=== PATIENT | male | born 1940 | race Caucasian/White ===

== ENCOUNTER → 2016-10-04 | Day surgery (SDC) | payer MEDICARE, MEDICAID ==
[2016-10-04] VITALS (12 sets, daily range): BP systolic 150–180; BP diastolic 6–89
[~2016-10-04] VITALS: Ht 170.2 cm; Wt 80.3 kg
[~2016-10-04] MED LIST: ASPIRIN81 MG ORAL; ATORVASTATIN CA40 MG ORAL; CARVEDILOL12.5 MG ORAL; DiphenhydrAMINE 50mg/ml Inj IVP PRN; EFFIENT10 MG PO; FLUDROCORTISON0.1 MG PO; HYDRALAZINE HCL50 MG ORAL; Iothalamate Meglumine 60% 30ML INJ ONE; LASIX40 MG ORAL; LR 1000ml 1,000 ML IVLG SCH; LR 1000ml ONE; METOPROLOL SUCC50 MG ORAL; Midazolam 2mg/2ml Inj ONE; NAMENDA10 MG ORAL; NS Irrig 1000ml ONE; NS Irrig 4000ml IRRIG ONE; Sterile Water For Irrig 2000ml IRRIG ONE; Sterile Water Irrig 1000ml IRRIG ONE; TAMSULOSIN HCL0.4 MG ORAL; VITAMIN D1000 UNI1 ORAL; ceFAZolin 1gm/50ml Premix 50 ML IV ONE; fentaNYL 100 mcg/2 mL IV ONE; fentaNYL 100 mcg/2 mL IV PRN
--- NOTE | 2016-10-04 07:56 | Pre-Procedure Note/Attestation ---
Pre-Procedure Note/Attestation Complete Prior to Procedure Planned Procedure: right Procedure Narrative: Ureteroscopy Laser Stone fragmentation stent placement left Attestation I attest that I discussed the nature of the procedure; its benefits; risks and complications; and alternatives (and the risks and benefits of such alternatives ), prior to the procedure, with the patient (or the patient's legal small business representative). I attest that, if there was a reasonable possibility of needing a blood transfusion, the patient (or the patient's legal small business representative) was given the [facility] standardized written summary, pursuant to the [place] Blood Safety Act ([place] Health and Safety Code # 1645, as amended). I attest that I re-evaluated the patient just prior to the surgery and that there has been no change in the patient's H&P, except as documented below: Macario Reyes MD Oct 04, 2016 07:56
--- NOTE | 2016-10-04 11:12 | Anethesia Preoperative Eval ---
Anesthesia Pre-op PMH/ROS General Date of Evaluation: Oct 04, 2016 Time of Evaluation: 10:40 Anesthesiologist: Faith ASA Score: ASA 3 Mallampati Score Class I : Soft palate, uvula, fauces, pillars visible Class II: Soft palate, uvula, fauces visible Class III: Soft palate, base of uvula visible Class IV: Only hard plate visible Mallampati Classification: Class III Surgeon: Amy Diagnosis: Kidney stones Surgical Procedure: Cysto retrograde pyelogram Anesthesia History: none Family History: no anesthesia problems Allergies: Coded Allergies: ACETAMINOPHEN (Verified Adverse Reaction, Severe, Extreme confusion, delerium, 01/19/16) HYDROCODONE (Verified Adverse Reaction, Severe, Extreme confusion, delerium, 01/19/16) Medications: see eMAR Past Medical History Cardiovascular: Reports: CAD, HTN, arrhythmia Pulmonary: Reports: CARLOS, Denies: COPD, asthma, other Gastrointestinal/Genitourinary: Reports: GERD, other - kidney stones, Denies: CRI, ESRD Neurologic/Psychiatric: 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 Exam Physician Exam Last Vital Signs Date Time Temp Pulse Resp B/P Pulse Ox O2 Delivery O2 Flow Rate FiO2 10/04/16 10:25 97.5 68 18 180/83 95 Room Air Constitutional: NAD Neurologic: CN 2-12 intact Cardiovascular: RRR, no M/R/G Respiratory: CTA Gastrointestinal: S/NT/ND Airway Exam Mallampati Score: Class III MO: limited Neck: stiff ROM: limited Teeth: missing Dentures: lower, upper Anesthesia Pre-op A/P Labs see chart Studies Pre-op Studies: EKG - ME Risk Assessment & Plan Assessment: ASA 3 Plan: GA with LMA Status Change Before Surgery: No Pre-Antibiotics Drug: Ancef 1 gr. Given Within 1 Hr of Incision: Yes Time Given: 10:56 CHI WELLS M.D. Oct 04, 2016 11:12
--- NOTE | 2016-10-04 12:53 | Immediate Post-Op Evaluation ---
Immediate Post-Op Evalulation Immediate Post-Op Evalulation Procedure: Cysto retrograde pyelogram stent placement Date of Evaluation: Oct 04, 2016 Time of Evaluation: 11:42 IV Fluids: 800 Blood Products: none Estimated Blood Loss: min Urinary Output: n/a Blood Pressure Systolic: 148 Blood Pressure Diastolic: 76 Pulse Rate: 62 Respiratory Rate: 20 O2 Sat by Pulse Oximetry: 98 Temperature (Fahrenheit): 98.4 Pain Score (1-10): 2 Nausea: No Vomiting: No Complications none Patient Status: reacts, patent, none Hydration Status: adequate CHI WELLS M.D. Oct 04, 2016 12:53
--- NOTE | 2016-10-04 14:10 | 48 Hour Post Anesthesia Eval ---
Post Anesthesia Evaluation Procedure: Cysto retrograde pyelogram stent placement Date of Evaluation: Oct 04, 2016 Time of Evaluation: 14:08 Blood Pressure Systolic: 156 0: 78 Pulse Rate: 62 Respiratory Rate: 20 Temperature (Fahrenheit): 97.6 O2 Sat by Pulse Oximetry: 99 Airway: patent Nausea: No Vomiting: No Pain Intensity: 2 Hydration Status: adequate Cardiopulmonary Status: stable Mental Status/LOC: patient returned to baseline Follow-up Care/Observations: n/a Post-Anesthesia Complications: none Follow-up care needed: ready to discharge CHI WELLS M.D. Oct 04, 2016 14:10
--- NOTE | 2016-10-05 13:25 | Diagnostic Imaging Report ---
Indication: Right flank pain Technique: Digital intraoperative imaging Comparison: None Findings: The opacified right ureter demonstrates mild right hydronephrosis. Subsequent images document placement of a right nephroureteral stent Impression: Intraoperative imaging, as described
--- NOTE | 2016-10-11 11:08 | Operative Note - Dictated ---
DATE OF OPERATION: 10/04/2016 PREOPERATIVE DIAGNOSES: 1. Right ureteral stone. 2. Right ureteral obstruction. POSTOPERATIVE DIAGNOSES: 1. Right ureteral stone. 2. Right ureteral obstruction. OPERATIONS PERFORMED: 1. Cystoscopy. 2. Retrograde pyelogram. 3. Flexible ureteroscopy. 4. Placement of double J stent. SURGEON: Macario Reyes M.D. ANESTHESIA: General. FINDINGS: The obstructed stone removed from the right ureter. INDICATIONS FOR SURGERY: The patient had right renal colic and CT urogram showed a stone in the mid right ureter with hydronephrosis. Treatment options were explained to him in great length including all potential complications and he signed the consent. DESCRIPTION OF PROCEDURE: The patient was brought to the operating room, placed in lithotomy position, prepped and draped in standard fashion. Under general anesthesia, a cystoscope was introduced. The bladder was normal. Right ureter was cannulated and retrograde pyelogram showed dilated upper ureter with a stone lodged in the mid right ureter. Flexible ureteroscopy was performed, which showed some due to the . Decision was made to proceed with stent placement and a through the stone, and was placed in the left . The patient tolerated the procedure well. Bladder was decompressed. . Sponge count and instrument count was correct. Mejia catheter was placed. The patient was transferred to recovery room in stable condition. Macario Reyes M.D. DR: Gretel JOB#: [id number] CC: JOJO
== END | disposition home or self-care (01) ==
LOC: SUR 08:40
DX: N13.2 Hydronephrosis with renal and ureteral calculous obstruction (principal); I25.10 Atherosclerotic heart disease of native coronary artery without angina pectoris; Z95.1 Presence of aortocoronary bypass graft; Z95.5 Presence of coronary angioplasty implant and graft; I73.9 Peripheral vascular disease, unspecified; I12.9 Hypertensive chronic kidney disease with stage 1 through stage 4 chronic kidney disease, or unspecified chronic kidney disease; N18.9 Chronic kidney disease, unspecified; G47.33 Obstructive sleep apnea (adult) (pediatric); K21.9 Gastro-esophageal reflux disease without esophagitis; I49.9 Cardiac arrhythmia, unspecified; I69.954 Hemiplegia and hemiparesis following unspecified cerebrovascular disease affecting left non-dominant side; D64.9 Anemia, unspecified; M19.90 Unspecified osteoarthritis, unspecified site; Z95.0 Presence of cardiac pacemaker; Z88.6 Allergy status to analgesic agent; Z88.5 Allergy status to narcotic agent
CPT/HCPCS: 52332; 52351; 74420; 76000; J0690; J1940; J2250; J3010; J7120; Q9961; 94003; 94150

== ENCOUNTER → 2016-10-18 | Day surgery (SDC) | payer MEDICARE, MEDICAID ==
[2016-10-18] VITALS (11 sets, daily range): BP systolic 81–195; BP diastolic 41–92
[~2016-10-18] VITALS: Ht 172.7 cm; Wt 79.8 kg
[~2016-10-18] MED LIST changes: -DiphenhydrAMINE 50mg/ml Inj IVP PRN; -LR 1000ml 1,000 ML IVLG SCH; -Midazolam 2mg/2ml Inj ONE; -NS Irrig 1000ml ONE; +NS Irrig 2000ml IRRIG ONE; -NS Irrig 4000ml IRRIG ONE; +Propofol 10mg/ml 20ml IV ONE; -Sterile Water For Irrig 2000ml IRRIG ONE; -ceFAZolin 1gm/50ml Premix 50 ML IV ONE; +ceFAZolin sod 1 GM in NS 55 ML IVPB ONE; -fentaNYL 100 mcg/2 mL IV ONE; -fentaNYL 100 mcg/2 mL IV PRN
--- NOTE | 2016-10-18 07:59 | Pre-Procedure Note/Attestation ---
Pre-Procedure Note/Attestation Complete Prior to Procedure Planned Procedure: right Procedure Narrative: RIRS right with laser stone manipulation stent placement Indications for Procedure Pre-Operative Diagnosis: ureteral stone Attestation I attest that I discussed the nature of the procedure; its benefits; risks and complications; and alternatives (and the risks and benefits of such alternatives ), prior to the procedure, with the patient (or the patient's legal auto claim representative). I attest that, if there was a reasonable possibility of needing a blood transfusion, the patient (or the patient's legal auto claim representative) was given the [facility] standardized written summary, pursuant to the [place] Blood Safety Act ([place] Health and Safety Code # 1645, as amended). I attest that I re-evaluated the patient just prior to the surgery and that there has been no change in the patient's H&P, except as documented below: Macario Reyes MD Oct 18, 2016 07:59
--- NOTE | 2016-10-18 09:49 | Anethesia Preoperative Eval ---
Anesthesia Pre-op PMH/ROS General Date of Evaluation: Oct 18, 2016 Time of Evaluation: 09:00 Anesthesiologist: toño ASA Score: ASA 3 Mallampati Score Class I : Soft palate, uvula, fauces, pillars visible Class II: Soft palate, uvula, fauces visible Class III: Soft palate, base of uvula visible Class IV: Only hard plate visible Mallampati Classification: Class I Surgeon: tito Diagnosis: ureral stone Surgical Procedure: RIRS right with laser stone manipulation stent placement Allergies: Coded Allergies: ACETAMINOPHEN (Verified Adverse Reaction, Severe, Extreme confusion, delerium, 01/19/16) HYDROCODONE (Verified Adverse Reaction, Severe, Extreme confusion, delerium, 01/19/16) Past Medical History Cardiovascular: Reports: HTN Anesthesia Pre-op Phys. Exam Physician Exam Last Vital Signs Date Time Temp Pulse Resp B/P Pulse Ox O2 Delivery O2 Flow Rate FiO2 10/18/16 07:41 97.0 65 18 164/81 95 Room Air Dyan Rossi MD Oct 18, 2016 09:49
--- NOTE | 2016-10-18 10:15 | Brief Operative Note ---
Immediate Post Operative Note Operative Note Pre-op Diagnosis: ureteral stone Procedure: Right ureteroscopy stone removal stent removal stent placement Post-op Diagnosis: same Post-op Diagnosis: same as pre-op Surgeon: Conrado Reyes Anesthesia: general Specimen: yes Complications: none Condition: stable Estimated Blood Loss: minimal Implant(s) used?: No Macario Reyes MD Oct 18, 2016 10:15
--- NOTE | 2016-10-18 10:21 | Immediate Post-Op Evaluation ---
Immediate Post-Op Evalulation Immediate Post-Op Evalulation Procedure: uretral stone removal and stent Date of Evaluation: Oct 18, 2016 Time of Evaluation: 10:30 Nausea: No Vomiting: No Hydration Status: adequate Given Within 1 Hr of Incision: Yes Dyan Rossi MD Oct 18, 2016 10:21
--- NOTE | 2016-10-18 11:06 | 48 Hour Post Anesthesia Eval ---
Post Anesthesia Evaluation Procedure: uretral stone removal and stent Date of Evaluation: Oct 18, 2016 Time of Evaluation: 11:00 Nausea: No Vomiting: No Hydration Status: adequate Mental Status/LOC: patient returned to baseline Dyan Rossi MD Oct 18, 2016 11:06
--- NOTE | 2016-10-18 12:18 | Diagnostic Imaging Report ---
Indication: Followup cystoscopy for right ureteral oculus that was not removed previously a stent was placed previously, as well as right calyceal stone removal and stent placement; intraoperative imaging Technique: Digital intraoperative images Comparison: 10/04/2016 Findings: Previously demonstrated proximal ureteral calculus has apparently migrated to the lower pole calyx. Intraoperative images demonstrate lithotripsy device in a lower pole calyx. Subsequent images document placement of a right nephroureteral stent Impression: Intraoperative imaging, as described
--- NOTE | 2016-10-23 08:48 | Operative Note - Dictated ---
DATE OF OPERATION: 10/18/2016 PREOPERATIVE DIAGNOSES: 1. Replacement of double J-stent. 2. Right UPJ stone. 3. Hydronephrosis. 4. Urinary tract infection. OPERATIONS PERFORMED: 1. Cystoscopy. 2. Removal of the old stent. 3. Placement of new double J stent after the semi rigid ureteroscopy and removal of stone from the upper right ureter. 4. Retrograde pyelogram. POSTOPERATIVE DIAGNOSES: 1. Cystoscopy. 2. Removal of the old stent. 3. Placement of new double J stent after the semi rigid ureteroscopy and removal of stone from the upper right ureter. 4. Retrograde pyelogram. OPERATED BY: Macario Reyes M.D. ANESTHESIA: General. FINDINGS: As above. INDICATIONS FOR SURGERY: The patient had acute renal colic with a stone in the right ureter. He had emergency stenting. All potential complications were explained and he signed the consent. DESCRIPTION OF PROCEDURE: The patient was brought to the operating room, placed in lithotomy position, prepped and draped in standard fashion. Under general anesthesia, a cystoscope was introduced into the bladder. Old stent was removed and new guidewire was placed. Semi rigid ureteroscope was introduced and stone was found in the upper ureter, grasped with Nitinol basket and removed for pathologic examination. . New stent was placed, 13/01, and left indwelling with a Mejia catheter. Sponge count and instrument count was correct. Macario Reyes M.D. DR: LE JOB#: [id number] CC:
[2016-10-27 09:24] LABS: CA OXALATE MONODYRD 95 % (.); STONE COLOR Brown (.); STONE SIZE 6x4x4 mm (.)
== END | disposition home or self-care (01) ==
LOC: SUR 07:13
DX: N13.2 Hydronephrosis with renal and ureteral calculous obstruction (principal); N39.0 Urinary tract infection, site not specified; I25.10 Atherosclerotic heart disease of native coronary artery without angina pectoris; I12.9 Hypertensive chronic kidney disease with stage 1 through stage 4 chronic kidney disease, or unspecified chronic kidney disease; N18.9 Chronic kidney disease, unspecified; I73.9 Peripheral vascular disease, unspecified; Z86.73 Personal history of transient ischemic attack (TIA), and cerebral infarction without residual deficits
CPT/HCPCS: 52332; 52352; 74420; 76000; J0690; J1940; J2704; J7120; Q9961; 82360; 94003; 94150

== ENCOUNTER 2017-09-25 01:44 | Inpatient (IN) | payer MEDICARE, MEDICAID ==
[~2017-09-25] VITALS: Ht 170.2 cm; Wt 60.3 kg
[2017-09-25] VITALS (8 sets, daily range): BP systolic 144–186; BP diastolic 68–99
[~2017-09-25 01:44] MED LIST changes: -Iothalamate Meglumine 60% 30ML INJ ONE; -LR 1000ml ONE; -NS Irrig 2000ml IRRIG ONE; -Propofol 10mg/ml 20ml IV ONE; -Sterile Water Irrig 1000ml IRRIG ONE; -ceFAZolin sod 1 GM in NS 55 ML IVPB ONE
--- NOTE | 2017-09-25 02:03 | Emergency Room Report ---
History of Present Illness General Chief Complaint: Altered Level of Consciousness Source: Family Member Present Illness HPI Patient presents with complaints of change in mental status Daughter reports that the patient at approximately 6:00 in the eating appear to be more confused patient's symptoms continued to progress He has had a previous CVA about 2 years ago He did have loss of significant vision with that However the daughter states that this evening he is not able to see her And that usually he does have some visual site also has underlying dementia Patient himself is nonverbal with us however the daughter reports that he asked her who she was just before I came in the room No reports of vomiting No reports of diarrhea No reports of focal weakness Allergies: Coded Allergies: ACETAMINOPHEN (Verified Adverse Reaction, Severe, Extreme confusion, delerium, 01/19/16) HYDROCODONE (Verified Adverse Reaction, Severe, Extreme confusion, delerium, 01/19/16) Patient History Limited by: medical condition Past Medical History: see triage record Pertinent Family History: unable to obtain Reviewed Nursing Documentation: PMH: Agreed, PSxH: Agreed Nursing Documentation-PMH Hx Cardiac Problems: Yes - Poor bilateral lower extremity circulation ,high cholesterol Hx Hypertension: Yes - legally blind both eyes Hx Pacemaker: Yes Hx COPD: Yes Hx Diabetes: Yes - Pre diabetic Hx Cancer: No Hx Gastrointestinal Problems: Yes History Of Psychiatric Problem: Yes - DEMENTIA Hx Neurological Problems: Yes Hx Cerebrovascular Accident: Yes - during open heart surgery Hx Transient Ischemic Attacks: Yes - During cardiac surgery - 2011 Hx Dementia: Yes Hx Memory Loss: Yes Hx Weakness: Yes - Left hand Review of Systems All Other Systems: limited - Other than the ones mentioned in the history of present illness all others are reviewed however they do stay limited due to the patient's mental status Physical Exam Vital Signs Date Time Temp Pulse Resp B/P (MAP) Pulse Ox O2 Delivery O2 Flow Rate FiO2 09/25/17 01:43 97.8 72 18 186/87 98 Room Air 97.9 Sp02 EP Interpretation: reviewed, normal General Appearance: no apparent distress Head: normocephalic, atraumatic Eyes: bilateral eye PERRL, bilateral eye other - Patient was able to look at me when I walked in, however the daughter reports that his vision is significantly worse ENT: hearing grossly normal, normal pharynx, TMs + canals normal, uvula midline Neck: full range of motion, supple Respiratory: crackles - both lower lobes Cardiovascular #1: no edema, no gallop Gastrointestinal: non tender, soft Musculoskeletal: other - Patient does not follow commands, however move both upper extremity towards stimuli Neurologic: responsive, other - Patient is responsive to physical stimuli looks , towards the verbal commands Skin: no rash, warm/dry Lymphatic: no adenopathy Medical Decision Making Diagnostic Impression: Primary Impression: Encephalopathy Additional Impressions: Renal insufficiency Pneumonia ER Course Patient is a fairly complex patient with multiple differential to consideration including but not limited to intracranial ,cardiac cardiopulmonary and vascular emergencies Patient's CT head blood work initiated Also consideration for infectious pathology is made Patient blood work shows elevated BUN and creatinine Urine sample however is clear Patient does not meet thrombolytic criteria Last well-known was over 6 hours ago Patient has also had previous CVA and the main deficit at this time is decrease in vision Patient's x-ray shows possible increased markings right lower lobe was initiated on antibiotics Labs Test 09/25/17 02:00 09/25/17 02:05 White Blood Count 7.9 K/UL (4.8-10.8) Red Blood Count 3.88 M/UL (4.70-6.10) Hemoglobin 12.0 G/DL (14.2-18.0) Hematocrit 35.8 % (42.0-52.0) Mean Corpuscular Volume 92 FL (80-99) Mean Corpuscular Hemoglobin 30.9 PG (27.0-31.0) Mean Corpuscular Hemoglobin Concent 33.4 G/DL (32.0-36.0) Red Cell Distribution Width 13.4 % (11.6-14.8) Platelet Count 142 K/UL (150-450) Mean Platelet Volume 7.9 FL (6.5-10.1) Neutrophils (%) (Auto) 76.8 % (45.0-75.0) Lymphocytes (%) (Auto) 14.0 % (20.0-45.0) Monocytes (%) (Auto) 6.4 % (1.0-10.0) Eosinophils (%) (Auto) 2.3 % (0.0-3.0) Basophils (%) (Auto) 0.5 % (0.0-2.0) Sodium Level 139 MMOL/L (136-145) Potassium Level 4.3 MMOL/L (3.5-5.1) Chloride Level 106 MMOL/L (98-107) Carbon Dioxide Level 25 MMOL/L (21-32) Anion Gap 9 mmol/L (5-15) Blood Urea Nitrogen 40 mg/dL (7-18) Creatinine 2.3 MG/DL (0.55-1.30) Estimat Glomerular Filtration Rate mL/min (>60) Glucose Level 121 MG/DL (74-106) Lactic Acid Level 0.70 mmol/L (0.66-2.22) Calcium Level 8.6 MG/DL (8.5-10.1) Total Bilirubin 0.5 MG/DL (0.2-1.0) Aspartate Amino Transf (AST/SGOT) 11 U/L (15-37) Alanine Aminotransferase (ALT/SGPT) 16 U/L (12-78) Alkaline Phosphatase 87 U/L (46-116) Total Creatine Kinase 43 U/L (26-308) Creatine Kinase MB 1.1 NG/ML (0.0-3.6) Creatine Kinase MB Relative Index 2.5 Troponin I 0.043 ng/mL (0.000-0.056) Total Protein 6.5 G/DL (6.4-8.2) Albumin 3.3 G/DL (3.4-5.0) Globulin 3.2 g/dL Albumin/Globulin Ratio 1.0 (1.0-2.7) Lipase 130 U/L (73-393) Urine Color Pale yellow Urine Appearance Clear Urine pH 5 (4.5-8.0) Urine Specific [place] 1.015 (1.005-1.035) Urine Protein Negative (NEGATIVE) Urine Glucose (UA) Negative (NEGATIVE) Urine Ketones Negative (NEGATIVE) Urine Occult Blood Negative (NEGATIVE) Urine Nitrite Negative (NEGATIVE) Urine Bilirubin Negative (NEGATIVE) Urine Urobilinogen Normal MG/DL (0.0-1.0) Urine Leukocyte Esterase Negative (NEGATIVE) EKG Diagnostic Results Rate: normal Rhythm: NSR ST Segments: other - prolonged qrs, LVH Rhythm Strip Diag. Results EP Interpretation: yes Rate: 67 Rhythm: NSR, no PVC's, no ectopy Chest X-Ray Diagnostic Results Chest X-Ray Diagnostic Results : Chest X-Ray Ordered: Yes # of Views/Limited/Complete: 1 View Indication: Chest Pain EP Interpretation: Yes Interpretation: no effusion, no pneumothorax, other - Cardiomegaly, increased markings right lower lobe, appearance of possible mild congestion Impression: Other - Right lower lobe increased markings Electronically Signed by: Conrado Bailey, DO CT/MRI/US Diagnostic Results CT/MRI/US Diagnostic Results : Impression CT head: No hemorrhage moderate age related volume loss over the bilateral hypodensities in the bilateral occipital temporal and parietal lobes superimposed acute infarct in these regions cannot be excluded Last Vital Signs Date Time Temp Pulse Resp B/P (MAP) Pulse Ox O2 Delivery O2 Flow Rate FiO2 09/25/17 01:43 97.8 72 18 186/87 98 Room Air 97.9 Status: improved Disposition: ADMITTED INPATIENT Condition: Serious CONRADO BAILEY D.O. Sep 25, 2017 02:03
[2017-09-25 02:18] LABS: BASOPHILS % (AUTO) 0.5 % (0.0-2.0); EOSINOPHILS % (AUTO) 2.3 % (0.0-3.0); HEMATOCRIT 35.8 % (42.0-52.0); MEAN CORPUSCULAR VOLUME 92 FL (80-99); MONOCYTES % (AUTO) 6.4 % (1.0-10.0); NEUTROPHILS % (AUTO) 76.8 % (45.0-75.0); PLATELET COUNT 142 K/UL (150-450); RED BLOOD COUNT 3.88 M/UL (4.70-6.10); RED CELL DISTRIBUTION WIDTH 13.4 % (11.6-14.8); WHITE BLOOD COUNT 7.9 K/UL (4.8-10.8)
[2017-09-25 02:18] LABS: APPEARANCE,URINE CLEAR; BILIRUBIN, URINE NEGATIVE (NEGATIVE); COLOR,URINE PALE YELLOW; GLUCOSE, URINE (UA) NEGATIVE (NEGATIVE); KETONES,URINE NEGATIVE (NEGATIVE); LEUKOCYTE ESTERASE ,URINE NEGATIVE (NEGATIVE); NITRITE,URINE NEGATIVE (NEGATIVE); PH,URINE 5 (4.5-8.0); PROTEIN,URINE NEGATIVE (NEGATIVE); UROBILINOGEN,URINE NORMAL MG/DL (0.0-1.0)
[2017-09-25 02:32] LABS: ANION GAP 9 mmol/L (5-15); BLOOD UREA NITROGEN 40 mg/dL (7-18); CALCIUM 8.6 MG/DL (8.5-10.1); CARBON DIOXIDE 25 MMOL/L (21-32); CHLORIDE 106 MMOL/L (98-107); CREATININE 2.3 MG/DL (0.55-1.30); POTASSIUM 4.3 MMOL/L (3.5-5.1); SODIUM 139 MMOL/L (136-145)
[2017-09-25 02:51] LABS: ALANINE AMINOTRANSFERASE 16 U/L (12-78); ALBUMIN 3.3 G/DL (3.4-5.0); ALKALINE PHOSPHATASE 87 U/L (46-116); ASPARTATE AMINO TRANSFERASE 11 U/L (15-37); BILIRUBIN,TOTAL 0.5 MG/DL (0.2-1.0); CKMB 1.1 NG/ML (0.0-3.6); CREATINE KINASE 43 U/L (26-308)
[2017-09-25] MEDS ORDERED: Albuterol/Ipratropium 3ml neb HHN PRN (05:30)
[2017-09-25] MEDS ORDERED: Morphine Sulfate 2mg/ml Inj IVP PRN (05:30)
[2017-09-25] MEDS ORDERED: Miralax 17gm pkt ORAL PRN (05:30)
[2017-09-25] MEDS ORDERED: LORazepam Inj 2mg/ml 1ml IV PRN (05:30)
[2017-09-25] MEDS ORDERED: Nitroglycerin Subl 0.4mg tab SL PRN (05:30)
[2017-09-25] MEDS ORDERED: Mylanta II UD 30ml ORAL PRN (05:30)
[2017-09-25] MEDS: D5 1/2NS 1,000 ML IV SCH ×2 (06:22→23:05)
[2017-09-25] MEDS ORDERED: LASIX20 M1 ORAL (06:43)
[2017-09-25] MEDS: Heparin 5000 units/ml inj SUBQ SCH ×2 (09:00→20:17)
[2017-09-25] MEDS ORDERED: Carvedilol 12.5mg tab ORAL SCH (09:00)
--- NOTE | 2017-09-25 09:39 | Diagnostic Imaging Report ---
Indication: Altered mental status Technique: Contiguous 5 mm thick transaxial imaging of the head obtained in a Siemens Sensation [address] scanner. Soft tissue and bone windows generated. Automatic Exposure Control was utilized. Total Dose length Product (DLP): 1288.[address] Dose Index Volume (CTDIvol): 70.38 mGy Comparison: none Findings: There is abnormal low attenuation demonstrated within the occipital regions bilaterally. Consider subacute ischemia or hypertensive encephalopathy. Moderate atrophy of the brain noted. Periventricular low attenuation noted. Probable small lacunar infarct in the right basal ganglia region noted. There is no evidence of acute intracranial hemorrhage or mass effect. Bones are unremarkable. IMPRESSION: Abnormal bioccipital low attenuation. Consider subacute CVA versus posterior reversible encephalopathy syndrome (PRES). Other incidental findings as above The CT scanner at [facility] is accredited by the [employer] and the scans are performed using dose optimization techniques as appropriate to a performed exam including Automatic Exposure control.
--- NOTE | 2017-09-25 09:57 | Diagnostic Imaging Report ---
Indication: Chest pain Comparison: None A single view chest radiograph was obtained. Findings: No definite infiltrate or pulmonary vascular congestion identified. Azygous lobe noted. Pacemaker and sternotomy noted. The heart is enlarged. The aorta is mildly enlarged consistent with atherosclerotic vascular disease. The bones are osteopenic. Impression: No acute disease
--- NOTE | 2017-09-25 12:57 | History and Physical ---
History of Present Illness General Date patient seen: Sep 25, 2017 Reason for Hospitalization: Altered Level of Consciousness Present Illness HPI 76 year old male with hx of cardiomyopathy, ICD, CVA dementia, presented to ER by paramedics with complaints of change in mental status Reportedly pt appeared to be more confused patient's symptoms continued to progress yesterday. he was not able to see. Patient himself is nonverbal and ll information is obtained form the chart. Allergies: Coded Allergies: ACETAMINOPHEN (Verified Adverse Reaction, Severe, Extreme confusion, delerium, 01/19/16) HYDROCODONE (Verified Adverse Reaction, Severe, Extreme confusion, delerium, 01/19/16) Medication History Scheduled Aspirin* (Aspirin*), 81 MG ORAL DAILY, (Reported) Atorvastatin Calcium* (Atorvastatin Calcium*), 40 MG ORAL BEDTIME, (Reported) Carvedilol* (Carvedilol*), 12.5 MG ORAL DAILY, (Reported) Cholecalciferol (Vitamin D3)* (Vitamin D*), 2,000 UNIT ORAL DAILY, (Reported) Furosemide* (Lasix*), 20 MG ORAL DAILY, (Reported) Hydralazine Hcl* (Hydralazine Hcl*), 50 MG ORAL BID, (Reported) Memantine Hcl* (Namenda*), 10 MG ORAL TWICE A DAY, (Reported) Prasugrel Hcl (Effient), 10 MG PO BID, (Reported) Tamsulosin Hcl (Tamsulosin Hcl*), 0.4 MG ORAL BEDTIME, (Reported) Discontinued Medications Furosemide* (Lasix*), 40 MG ORAL DAILY, (Reported) Discontinued Reason: Medication dose changed Patient History Healthcare decision maker AILYN ARAIZA Resuscitation status Advanced Directive on File Past Medical/Surgical History Past Medical/Surgical History: (1) Dementia (2) CVA (cerebral vascular accident) (3) ICD (implantable cardioverter-defibrillator) in place (4) Cardiomyopathy Review of Systems All Other Systems: negative except mentioned in HPI Physical Exam General Appearance: WD/WN Lines, tubes and drains: peripheral HEENT: normocephalic, atraumatic Neck: non-tender, normal alignment Respiratory/Chest: chest wall non-tender, lungs clear Cardiovascular/Chest: normal peripheral pulses, normal rate Abdomen: normal bowel sounds, non tender Extremities: normal range of motion, non-tender Skin Exam: normal pigmentation Neurologic: siphoner II-XII grossly normal Last 24 Hour Vital Signs Date Time Temp Pulse Resp B/P (MAP) Pulse Ox O2 Delivery O2 Flow Rate FiO2 09/25/17 12:22 97.0 65 20 144/68 97 Room Air 97.0 09/25/17 10:00 71 16 Room Air 21 09/25/17 09:23 70 146/86 09/25/17 09:21 70 146/86 09/25/17 08:00 96.6 72 18 179/88 96 Room Air 96.6 09/25/17 04:30 98.1 77 19 159/86 96 Room Air 98.1 09/25/17 04:20 97.9 82 12 177/85 96 Room Air 97.9 09/25/17 04:15 97.9 82 12 177/85 96 Room Air 97.9 09/25/17 02:12 97.9 75 12 186/83 96 Room Air 97.9 09/25/17 01:43 97.8 72 18 186/87 98 Room Air 97.9 Intake and Output 09/24/17 09/25/17 19:00 07:00 Output Total 420 ml Balance -420 ml Output Urine Total 420 ml # Voids 2 Laboratory Tests Test 09/25/17 02:00 09/25/17 02:05 White Blood Count 7.9 K/UL (4.8-10.8) Red Blood Count 3.88 M/UL (4.70-6.10) L Hemoglobin 12.0 G/DL (14.2-18.0) L Hematocrit 35.8 % (42.0-52.0) L Mean Corpuscular Volume 92 FL (80-99) Mean Corpuscular Hemoglobin 30.9 PG (27.0-31.0) Mean Corpuscular Hemoglobin Concent 33.4 G/DL (32.0-36.0) Red Cell Distribution Width 13.4 % (11.6-14.8) Platelet Count 142 K/UL (150-450) L Mean Platelet Volume 7.9 FL (6.5-10.1) Neutrophils (%) (Auto) 76.8 % (45.0-75.0) H Lymphocytes (%) (Auto) 14.0 % (20.0-45.0) L Monocytes (%) (Auto) 6.4 % (1.0-10.0) Eosinophils (%) (Auto) 2.3 % (0.0-3.0) Basophils (%) (Auto) 0.5 % (0.0-2.0) Sodium Level 139 MMOL/L (136-145) Potassium Level 4.3 MMOL/L (3.5-5.1) Chloride Level 106 MMOL/L (98-107) Carbon Dioxide Level 25 MMOL/L (21-32) Anion Gap 9 mmol/L (5-15) Blood Urea Nitrogen 40 mg/dL (7-18) H Creatinine 2.3 MG/DL (0.55-1.30) H Estimat Glomerular Filtration Rate mL/min (>60) Glucose Level 121 MG/DL (74-106) H Lactic Acid Level 0.70 mmol/L (0.66-2.22) Calcium Level 8.6 MG/DL (8.5-10.1) Total Bilirubin 0.5 MG/DL (0.2-1.0) Aspartate Amino Transf (AST/SGOT) 11 U/L (15-37) L Alanine Aminotransferase (ALT/SGPT) 16 U/L (12-78) Alkaline Phosphatase 87 U/L (46-116) Total Creatine Kinase 43 U/L (26-308) Creatine Kinase MB 1.1 NG/ML (0.0-3.6) Creatine Kinase MB Relative Index 2.5 Troponin I 0.043 ng/mL (0.000-0.056) Total Protein 6.5 G/DL (6.4-8.2) Albumin 3.3 G/DL (3.4-5.0) L Globulin 3.2 g/dL Albumin/Globulin Ratio 1.0 (1.0-2.7) Lipase 130 U/L (73-393) Urine Color Pale yellow Urine Appearance Clear Urine pH 5 (4.5-8.0) Urine Specific [place] 1.015 (1.005-1.035) Urine Protein Negative (NEGATIVE) Urine Glucose (UA) Negative (NEGATIVE) Urine Ketones Negative (NEGATIVE) Urine Occult Blood Negative (NEGATIVE) Urine Nitrite Negative (NEGATIVE) Urine Bilirubin Negative (NEGATIVE) Urine Urobilinogen Normal MG/DL (0.0-1.0) Urine Leukocyte Esterase Negative (NEGATIVE) Height (Feet): 5 Height (Inches): 7.00 Weight (Pounds): 133 Medications Current Medications Medications (Trade) Dose Ordered Sig/Ricki Route PRN Reason Start Time Stop Time Status Last Admin Dose Admin Al Hydroxide/Mg Hydroxide (Mylanta II) 30 ml Q6H PRN ORAL dyspepsia 09/25/17 05:30 10/25/17 05:29 Albuterol/ Ipratropium (Albuterol/ Ipratropium) 3 ml Q4H PRN HHN Shortness of Breath 09/25/17 05:30 09/30/17 05:29 Carvedilol (Coreg) 12.5 mg DAILY ORAL 09/25/17 09:00 10/25/17 08:59 09/25/17 09:23 Clonidine HCl (Catapres Tab) 0.1 mg Q4H PRN ORAL For High Blood Pressure 09/25/17 05:30 10/25/17 05:29 Dextrose (Dextrose 50%) STAT PRN IV Hypoglycemia 09/25/17 05:30 10/25/17 05:29 Dextrose/Sodium Chloride 1,000 ml @ 50 mls/hr Q20H IV 09/25/17 05:27 10/25/17 05:26 09/25/17 06:22 Furosemide (Lasix) 20 mg DAILY ORAL 09/25/17 09:00 10/25/17 08:59 09/25/17 09:23 Heparin Sodium (Porcine) (Heparin 5000 units/ml) 5,000 units EVERY 12 HOURS SUBQ 09/25/17 09:00 10/25/17 08:59 Lorazepam (Ativan 2mg/ml 1ml) 0.5 mg Q4H PRN IV For Anxiety 09/25/17 05:30 10/02/17 05:29 Morphine Sulfate (Morphine Sulfate) 1 mg Q4H PRN IVP For Pain 7-10 09/25/17 05:30 10/02/17 05:29 Nitroglycerin (Ntg) 0.4 mg Q5M X 3 DOSES PRN SL Prn Chest Pain 09/25/17 05:30 10/25/17 05:29 Ondansetron HCl (Zofran) 4 mg Q6H PRN IVP Nausea & Vomiting 09/25/17 05:30 10/25/17 05:29 Polyethylene Glycol (Miralax) 17 gm HSPRN PRN ORAL Constipation 09/25/17 05:30 10/25/17 05:29 Tamsulosin HCl (Flomax) 0.4 mg BEDTIME ORAL 09/25/17 21:00 10/25/17 20:59 Temazepam (Restoril) 15 mg HSPRN PRN ORAL Insomnia 09/25/17 05:30 10/02/17 05:29 Assessment/Plan Problem List: (1) Altered mental status ICD Codes: R41.82 - Altered mental status, unspecified SNOMED: 736128911 (2) Encephalopathy ICD Codes: G93.40 - Encephalopathy, unspecified SNOMED: 99733908, 833629523 (3) CVA (cerebral vascular accident) ICD Codes: I63.9 - Cerebral infarction, unspecified SNOMED: 246831463 (4) ICD (implantable cardioverter-defibrillator) in place ICD Codes: Z95.810 - Presence of automatic (implantable) cardiac defibrillator SNOMED: 117368833 (5) Dementia ICD Codes: F03.90 - Unspecified dementia without behavioral disturbance SNOMED: 83010294 (6) Cardiomyopathy ICD Codes: I42.9 - Cardiomyopathy, unspecified SNOMED: 62378628 Assessment/Plan neuro evaluation can't get a MRI b/o of the pace maker pt/ot swallow evaluation pt/ot adjust cardiac meds JENNIE MAYA Sep 25, 2017 12:57
--- NOTE | 2017-09-25 15:31 | Cardiology Report ---
APPROVED REPORT EXAM: Two-dimensional and M-mode echocardiogram with Doppler and color Doppler. INDICATION Left ventricular function M-Mode DIMENSIONS IVSd1.9 (0.7-1.1cm)Left Atrium (MM)4.5 (1.6-4.0cm) LVDd7.1 (3.5-5.6cm)Aortic Root3.7 (2.0-3.7cm) PWd1.7 (0.7-1.1cm)Aortic Cusp Exc.2.0 (1.5-2.0cm) LVDs6.2 (2.5-4.0cm) PWs1.4 cm Mild left ventricular enlargement. Hypokinesis of . basal to mid posterior and inferior and inferolateral wall l hypokinesis Left ventricular ejection fraction estimated to be 40%. No evidence of left ventricular hypertrophy. No evidence of pericardial or pleural effusion. Right cardiac chamber sizes are within normal limits. Moderate left atrial enlargement by 2D. Focal aortic valve sclerosis with adequate cusp excursion. Thickened mitral valve leaflets with normal excursion. Mild mitral annulus and aortic root calcification. Pulmonic valve not well visualized. Normal tricuspid valve structure. IVC is normal in size and collapsible with respiration. Probable pacemaker wire present in the right side chambers. A color flow and spectral Doppler study was performed and revealed: No aortic regurgitation. moderate to severe mitral regurgitation. Mitral diastolic velocities suggest reduced left ventricular relaxation c/w diastolic dysfunction grade 1. Trace tricuspid regurgitation. Tricuspid systolic velocities suggests peak right ventricular systolic pressure of 18 mmHg Pulmonic regurgitation present.
--- NOTE | 2017-09-25 16:25 | Cardiology Report ---
APPROVED REPORT EKG Measurement Heart [id number] Normal sinus rhythm Left axis deviation Left ventricular hypertrophy with QRS widening and repolarization abnormality Abnormal ECG
--- NOTE | 2017-09-25 17:07 | Consultation ---
Consult Note Consult Note asked to eval for renal failure Patient presents with complaints of change in mental status Daughter reports that the patient at approximately 6:00 in the eating appear to be more confused patient's symptoms continued to progress He has had a previous CVA about 2 years ago He did have loss of significant vision with that However the daughter states that this evening he is not able to see her And that usually he does have some visual site also has underlying dementia Patient himself is nonverbal with us however the daughter reports that he asked her who she was just before I came in the room No reports of vomiting No reports of diarrhea No reports of focal weakness Allergies: Coded Allergies: ACETAMINOPHEN (Verified Adverse Reaction, Severe, Extreme confusion, delerium, 01/19/16) HYDROCODONE (Verified Adverse Reaction, Severe, Extreme confusion, delerium, 01/19/16) Hx Cardiac Problems: Yes - Poor bilateral lower extremity circulation ,high cholesterol Hx Hypertension: Yes - legally blind both eyes Hx Pacemaker: Yes Hx COPD: Yes Hx Diabetes: Yes - Pre diabetic Hx Gastrointestinal Problems: Yes History Of Psychiatric Problem: Yes - DEMENTIA Hx Neurological Problems: Yes Hx Cerebrovascular Accident: Yes - during open heart surgery Hx Transient Ischemic Attacks: Yes - During cardiac surgery - 2011 Hx Dementia: Yes Hx Memory Loss: Yes Hx Weakness: Yes - Left hand Assessment/Plan Renal failure- Chronic vs acute Anemia Encephalopathy / CVA Pacer Dementia Cardiomyopathy Ej Fx 40% Slow Hydration Urine studies Kidney EDWIN avoid nephrotoxics per consultants ANGÉLICA MARINO Sep 25, 2017 17:07
--- NOTE | 2017-09-25 17:35 | Cardiology Progress Note ---
Assessment/Plan Assessment/Plan ams ? metablic encephalopathy r/ other icm ef previsouly 37% unchanged on today echo cri cr in jul 2017 [place] 1.8 cad s/p cabg with pci rca 2016 mod ot sever MR icd hx hs of prio cva htn isoril hydralazien comb dc ivf if ok with dr domingo sanchez on effient for now off arb acie due to renal insuf ? neuro menjivar / copies of record placed in pts physical chart [id number] Objective Last 24 Hour Vital Signs Date Time Temp Pulse Resp B/P (MAP) Pulse Ox O2 Delivery O2 Flow Rate FiO2 09/25/17 16:22 97.5 69 18 161/99 97 Room Air 97.5 09/25/17 12:22 97.0 65 20 144/68 97 Room Air 97.0 09/25/17 10:00 71 16 Room Air 21 09/25/17 09:23 70 146/86 09/25/17 09:21 70 146/86 09/25/17 08:00 96.6 72 18 179/88 96 Room Air 96.6 09/25/17 04:30 98.1 77 19 159/86 96 Room Air 98.1 09/25/17 04:20 97.9 82 12 177/85 96 Room Air 97.9 09/25/17 04:15 97.9 82 12 177/85 96 Room Air 97.9 09/25/17 02:12 97.9 75 12 186/83 96 Room Air 97.9 09/25/17 01:43 97.8 72 18 186/87 98 Room Air 97.9 Intake and Output 09/24/17 09/25/17 19:00 07:00 Output Total 420 ml Balance -420 ml Output Urine Total 420 ml # Voids 2 Laboratory Tests Test 09/25/17 02:00 09/25/17 02:05 White Blood Count 7.9 K/UL (4.8-10.8) Red Blood Count 3.88 M/UL (4.70-6.10) L Hemoglobin 12.0 G/DL (14.2-18.0) L Hematocrit 35.8 % (42.0-52.0) L Mean Corpuscular Volume 92 FL (80-99) Mean Corpuscular Hemoglobin 30.9 PG (27.0-31.0) Mean Corpuscular Hemoglobin Concent 33.4 G/DL (32.0-36.0) Red Cell Distribution Width 13.4 % (11.6-14.8) Platelet Count 142 K/UL (150-450) L Mean Platelet Volume 7.9 FL (6.5-10.1) Neutrophils (%) (Auto) 76.8 % (45.0-75.0) H Lymphocytes (%) (Auto) 14.0 % (20.0-45.0) L Monocytes (%) (Auto) 6.4 % (1.0-10.0) Eosinophils (%) (Auto) 2.3 % (0.0-3.0) Basophils (%) (Auto) 0.5 % (0.0-2.0) Sodium Level 139 MMOL/L (136-145) Potassium Level 4.3 MMOL/L (3.5-5.1) Chloride Level 106 MMOL/L (98-107) Carbon Dioxide Level 25 MMOL/L (21-32) Anion Gap 9 mmol/L (5-15) Blood Urea Nitrogen 40 mg/dL (7-18) H Creatinine 2.3 MG/DL (0.55-1.30) H Estimat Glomerular Filtration Rate mL/min (>60) Glucose Level 121 MG/DL (74-106) H Lactic Acid Level 0.70 mmol/L (0.66-2.22) Calcium Level 8.6 MG/DL (8.5-10.1) Total Bilirubin 0.5 MG/DL (0.2-1.0) Aspartate Amino Transf (AST/SGOT) 11 U/L (15-37) L Alanine Aminotransferase (ALT/SGPT) 16 U/L (12-78) Alkaline Phosphatase 87 U/L (46-116) Total Creatine Kinase 43 U/L (26-308) Creatine Kinase MB 1.1 NG/ML (0.0-3.6) Creatine Kinase MB Relative Index 2.5 Troponin I 0.043 ng/mL (0.000-0.056) Total Protein 6.5 G/DL (6.4-8.2) Albumin 3.3 G/DL (3.4-5.0) L Globulin 3.2 g/dL Albumin/Globulin Ratio 1.0 (1.0-2.7) Lipase 130 U/L (73-393) Urine Color Pale yellow Urine Appearance Clear Urine pH 5 (4.5-8.0) Urine Specific [place] 1.015 (1.005-1.035) Urine Protein Negative (NEGATIVE) Urine Glucose (UA) Negative (NEGATIVE) Urine Ketones Negative (NEGATIVE) Urine Occult Blood Negative (NEGATIVE) Urine Nitrite Negative (NEGATIVE) Urine Bilirubin Negative (NEGATIVE) Urine Urobilinogen Normal MG/DL (0.0-1.0) Urine Leukocyte Esterase Negative (NEGATIVE) OSCAR PETERSON Sep 25, 2017 17:35
[2017-09-25] MEDS: Aspirin EC 81mg tab ORAL SCH (18:15)
[2017-09-25] MEDS: HydrALAZINE 50mg tab ORAL SCH ×2 (18:21→22:34)
[2017-09-25] MEDS: Carvedilol 12.5mg tab ORAL SCH (18:23)
[2017-09-25] MEDS: Tamsulosin 0.4mg cap ORAL SCH (20:16)
--- NOTE | 2017-09-25 23:25 | Consultation ---
History of Present Illness General Date patient seen: Sep 25, 2017 Chief Complaint: Altered Level of Consciousness Present Illness HPI 76 year old male with hx of cardiomyopathy, ICD, CVA dementia, presented to ER by paramedics due to change in mental status Reportedly pt appeared to be more confused. the pt was agitated and was pw waxing and waning of consciousness Allergies: Coded Allergies: ACETAMINOPHEN (Verified Adverse Reaction, Severe, Extreme confusion, delerium, 01/19/16) HYDROCODONE (Verified Adverse Reaction, Severe, Extreme confusion, delerium, 01/19/16) Medication History Scheduled Aspirin* (Aspirin*), 81 MG ORAL DAILY, (Reported) Atorvastatin Calcium* (Atorvastatin Calcium*), 40 MG ORAL BEDTIME, (Reported) Carvedilol* (Carvedilol*), 12.5 MG ORAL DAILY, (Reported) Cholecalciferol (Vitamin D3)* (Vitamin D*), 2,000 UNIT ORAL DAILY, (Reported) Furosemide* (Lasix*), 20 MG ORAL DAILY, (Reported) Hydralazine Hcl* (Hydralazine Hcl*), 50 MG ORAL BID, (Reported) Memantine Hcl* (Namenda*), 10 MG ORAL TWICE A DAY, (Reported) Prasugrel Hcl (Effient), 10 MG PO BID, (Reported) Tamsulosin Hcl (Tamsulosin Hcl*), 0.4 MG ORAL BEDTIME, (Reported) Discontinued Medications Furosemide* (Lasix*), 40 MG ORAL DAILY, (Reported) Discontinued Reason: Medication dose changed Patient History History Provided By: Patient, Medical Record, PMD Healthcare decision maker AILYN ARAIZA Resuscitation status Advanced Directive on File Past Medical/Surgical History Past Medical/Surgical History: (1) Pneumonia (2) Renal insufficiency (3) Encephalopathy (4) Dementia (5) Cardiomyopathy (6) CVA (cerebral vascular accident) (7) ICD (implantable cardioverter-defibrillator) in place (8) Altered mental status Review of Systems Psychiatric: Reports: prior hx, anxiety, depressed feelings, emotional problems Physical Exam General Appearance: no apparent distress, alert, confused, agitated Last 24 Hour Vital Signs Date Time Temp Pulse Resp B/P (MAP) Pulse Ox O2 Delivery O2 Flow Rate FiO2 09/25/17 22:34 153/82 09/25/17 19:52 98.2 76 18 153/82 96 Room Air 98.2 3/6/18 18:23 69 161/99 09/25/17 18:21 161/99 09/25/17 18:16 161/99 09/25/17 16:22 97.5 69 18 161/99 97 Room Air 97.5 09/25/17 12:22 97.0 65 20 144/68 97 Room Air 97.0 09/25/17 10:00 71 16 Room Air 21 09/25/17 09:23 70 146/86 09/25/17 09:21 70 146/86 09/25/17 08:00 96.6 72 18 179/88 96 Room Air 96.6 09/25/17 04:30 98.1 77 19 159/86 96 Room Air 98.1 09/25/17 04:20 97.9 82 12 177/85 96 Room Air 97.9 09/25/17 04:15 97.9 82 12 177/85 96 Room Air 97.9 09/25/17 02:12 97.9 75 12 186/83 96 Room Air 97.9 09/25/17 01:43 97.8 72 18 186/87 98 Room Air 97.9 Intake and Output 09/24/17 09/25/17 19:00 07:00 Output Total 420 ml Balance -420 ml Output Urine Total 420 ml # Voids 2 Laboratory Tests Test 09/25/17 02:00 09/25/17 02:05 White Blood Count 7.9 K/UL (4.8-10.8) Red Blood Count 3.88 M/UL (4.70-6.10) L Hemoglobin 12.0 G/DL (14.2-18.0) L Hematocrit 35.8 % (42.0-52.0) L Mean Corpuscular Volume 92 FL (80-99) Mean Corpuscular Hemoglobin 30.9 PG (27.0-31.0) Mean Corpuscular Hemoglobin Concent 33.4 G/DL (32.0-36.0) Red Cell Distribution Width 13.4 % (11.6-14.8) Platelet Count 142 K/UL (150-450) L Mean Platelet Volume 7.9 FL (6.5-10.1) Neutrophils (%) (Auto) 76.8 % (45.0-75.0) H Lymphocytes (%) (Auto) 14.0 % (20.0-45.0) L Monocytes (%) (Auto) 6.4 % (1.0-10.0) Eosinophils (%) (Auto) 2.3 % (0.0-3.0) Basophils (%) (Auto) 0.5 % (0.0-2.0) Sodium Level 139 MMOL/L (136-145) Potassium Level 4.3 MMOL/L (3.5-5.1) Chloride Level 106 MMOL/L (98-107) Carbon Dioxide Level 25 MMOL/L (21-32) Anion Gap 9 mmol/L (5-15) Blood Urea Nitrogen 40 mg/dL (7-18) H Creatinine 2.3 MG/DL (0.55-1.30) H Estimat Glomerular Filtration Rate mL/min (>60) Glucose Level 121 MG/DL (74-106) H Lactic Acid Level 0.70 mmol/L (0.66-2.22) Calcium Level 8.6 MG/DL (8.5-10.1) Total Bilirubin 0.5 MG/DL (0.2-1.0) Aspartate Amino Transf (AST/SGOT) 11 U/L (15-37) L Alanine Aminotransferase (ALT/SGPT) 16 U/L (12-78) Alkaline Phosphatase 87 U/L (46-116) Total Creatine Kinase 43 U/L (26-308) Creatine Kinase MB 1.1 NG/ML (0.0-3.6) Creatine Kinase MB Relative Index 2.5 Troponin I 0.043 ng/mL (0.000-0.056) Total Protein 6.5 G/DL (6.4-8.2) Albumin 3.3 G/DL (3.4-5.0) L Globulin 3.2 g/dL Albumin/Globulin Ratio 1.0 (1.0-2.7) Lipase 130 U/L (73-393) Urine Color Pale yellow Urine Appearance Clear Urine pH 5 (4.5-8.0) Urine Specific [place] 1.015 (1.005-1.035) Urine Protein Negative (NEGATIVE) Urine Glucose (UA) Negative (NEGATIVE) Urine Ketones Negative (NEGATIVE) Urine Occult Blood Negative (NEGATIVE) Urine Nitrite Negative (NEGATIVE) Urine Bilirubin Negative (NEGATIVE) Urine Urobilinogen Normal MG/DL (0.0-1.0) Urine Leukocyte Esterase Negative (NEGATIVE) Height (Feet): 5 Height (Inches): 7.00 Weight (Pounds): 133 Medications Current Medications Medications (Trade) Dose Ordered Sig/Ricki Route PRN Reason Start Time Stop Time Status Last Admin Dose Admin Albuterol/ Ipratropium (Albuterol/ Ipratropium) 3 ml Q4H PRN HHN Shortness of Breath 09/25/17 05:30 09/30/17 05:29 Aspirin (Ecotrin) 81 mg DAILY ORAL 09/25/17 18:00 10/25/17 17:59 09/25/17 18:15 Carvedilol (Coreg) 12.5 mg BID ORAL 09/25/17 18:00 10/25/17 08:59 09/25/17 18:23 Clonidine HCl (Catapres Tab) 0.1 mg Q4H PRN ORAL SBP 160 and up 09/25/17 17:00 10/25/17 16:59 Clopidogrel Bisulfate (Plavix) 75 mg DAILY ORAL 09/25/17 18:00 10/25/17 17:59 09/25/17 18:15 Dextrose (Dextrose 50%) STAT PRN IV Hypoglycemia 09/25/17 05:30 10/25/17 05:29 Dextrose/Sodium Chloride 1,000 ml @ 50 mls/hr Q20H IV 09/25/17 05:27 10/25/17 05:26 09/25/17 23:05 Heparin Sodium (Porcine) (Heparin 5000 units/ml) 5,000 units EVERY 12 HOURS SUBQ 09/25/17 09:00 10/25/17 08:59 Hydralazine HCl (Apresoline) 50 mg Q8HR ORAL 09/25/17 18:00 10/25/17 17:59 09/25/17 22:34 Isosorbide Dinitrate (Isordil) 10 mg TID ORAL 09/25/17 18:00 10/25/17 17:59 09/25/17 18:16 Lorazepam (Ativan 2mg/ml 1ml) 0.5 mg Q4H PRN IV For Anxiety 09/25/17 05:30 10/02/17 05:29 Morphine Sulfate (Morphine Sulfate) 1 mg Q4H PRN IVP For Pain 7-10 09/25/17 05:30 10/02/17 05:29 Nitroglycerin (Ntg) 0.4 mg Q5M X 3 DOSES PRN SL Prn Chest Pain 09/25/17 05:30 10/25/17 05:29 Ondansetron HCl (Zofran) 4 mg Q6H PRN IVP Nausea & Vomiting 09/25/17 05:30 10/25/17 05:29 Polyethylene Glycol (Miralax) 17 gm HSPRN PRN ORAL Constipation 09/25/17 05:30 10/25/17 05:29 Tamsulosin HCl (Flomax) 0.4 mg BEDTIME ORAL 09/25/17 21:00 10/25/17 20:59 09/25/17 20:16 Temazepam (Restoril) 15 mg HSPRN PRN ORAL Insomnia 09/25/17 05:30 10/02/17 05:29 Assessment/Plan Status: stable Assessment/Plan encephalopathy agitation dementia with behavioral dist Virginia Lopes M.D. Sep 25, 2017 23:25
[2017-09-26] VITALS: BP 143/54
[2017-09-26 04:34] VITALS: BP 160/82
[2017-09-26] MEDS: HydrALAZINE 50mg tab ORAL SCH ×3 (05:11→21:25)
--- NOTE | 2017-09-26 05:15 | Consultation ---
DATE OF CONSULTATION: 09/25/2017 NOTE: POOR AUDIO CARDIAC CONSULTATION CONSULTING PHYSICIAN: Gumaro Newman M.D. REFERRING PHYSICIAN: Khadra Mulligan M.D. REASON FOR REFERRAL: Abnormal electrocardiogram. HISTORY OF PRESENT ILLNESS: This is an elderly male, who has a history of multiple medical problems. The patient has been brought into the emergency room of [facility] by his family mainly because of alteration in mentation. 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 He is able to communicate his complaints with us through a Bangl[place]hi main line station engineer at the bedside; however, they feel that the patient is not appropriate and is not able to remember. According to the emergency room physician, he was brought in because at approximately 6 while he was eating appeared to be more confused, symptoms continued to progress. He had CVA 2 years ago and did have loss of vision at that time. he was not able to see her and usually he does have some visual and also underlying dementia. The patient himself at the time in the emergency room was nonverbal and . At this time, the patient denies any chest pain. Denies any shortness of breath. Denies and orthopnea. He uses one pillow. He does not have any dizziness when he stands up. No palpitations and no pain, pressure, or tightness in his chest. PAST MEDICAL HISTORY: Extensive I had to review, mainly the [facility] records and obtained the following. He does have a history of October 2016 admission with history of MRSA bacteremia, nephrolithiasis, status post lithotripsy, and urinary tract infection. ABIDA negative for vegetation. PICC was placed at that time and was treated with antibiotics. He also has a history of hypertension, coronary artery disease, status post coronary artery bypass grafting as well as cardiac catheterization that was performed in 2015 that showed severe minto coronary disease with patent saphenous vein graft to the obtuse marginal and ABDALLA to the mid left anterior descending artery. The patient did undergo percutaneous coronary intervention to the distal right coronary artery at that time with significant stent being placed in that vessel, this was back in 2016. He does have a history of hyperlipidemia and he has a history of cardiomyopathy, ejection fraction 37%. Chronic kidney disease stage IV and history of cerebrovascular accident on coronary bypass grafting. He has vascular dementia. He has benign prostatic hypertrophy and history of nephrolithiasis. 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 Sepsis as mentioned and varicella infection, endarterectomy, laparoscopic cholecystectomy, intracardiac defibrillator implantation, and he had an echocardiogram that had shown previously mildly depressed LV systolic function, ejection fraction at that time was 36%. RV pacing, reversal of E to A wave, prolonged deceleration time, akinesis of the entire inferolateral wall, akinesis of the basal inferior wall, septal wall, mid inferior wall, function was normal. Catheter was noted in the RV. He has a history of abnormal cardiac stress test before his cardiac catheterization with right coronary artery ischemic burden. He also has a history of V-Tach and syncope and bradycardia, vasovagal episode. No history of prior myocardial infarction. His last creatinine at [facility] in July 2017 was 12.8 and he has a left bundle-branch conduction defect on his prior EKG. ALLERGIES: The patient is allergic to [place]. SOCIAL HISTORY: He was born in [place] in the 1940s. He is 76 years old. He currently lives in [place]. His can speak clear Slovenian. He does not smoke or drink alcoholic beverages at the present time. REVIEW OF SYSTEMS: GASTROINTESTINAL: He denies. GENITOURINARY: He denies. PULMONARY: He denies. CONSTITUTIONAL: He denies. NEUROLOGIC: As mentioned in the history of present illness. The patient apparently was very confused and agitated at the time of his presentation. PHYSICAL EXAMINATION: GENERAL: Shows him to be an elderly gentleman, in no respiratory distress. He is basically blind. NECK: Supple. No jugular venous distention. LUNGS: Clear to auscultation and percussion. CARDIAC: Regular rate and rhythm. No heaves, thrills, or gallops noted. ABDOMEN: Soft and nontender. Positive bowel sounds. EXTREMITIES: There is no clubbing, cyanosis, nor is there any edema. NEUROLOGICAL: He is awake, alert, responsive, but blind. LABORATORY AND DIAGNOSTIC DATA: He had an echocardiogram, which I read today, shows an ejection fraction of 40%. There is hypokinesis of the basal to mid posterior and inferior wall, inferolateral wall, and he has no aortic regurgitation. Qbbyswyr-os-[id number] mitral regurgitation was noted. Mild diastolic relaxation abnormality was noted. Tricuspid regurgitation was also noted to be present, but not . In comparison with his last echocardiogram at [facility], felt to be a moderate amount of mitral regurgitation. At that time, ejection fraction was 37%. His other tests, white count of 7.9, hemoglobin 12, and platelet count of 142. Sodium is 139, potassium 4.3, chloride 106, bicarb 26, BUN of 40, creatinine 2.3, and glucose of 121. First set of cardiac enzymes are negative. His urinalysis appears to be unremarkable. ASSESSMENT AND PLAN: 1. Altered mentation with agitation. 2. Vascular dementia. 3. Ischemic cardiomyopathy. 4. Coronary artery disease with history of coronary artery bypass grafting with subsequent right coronary artery PCI. 5. Chronic renal insufficiency. 6. Combined systolic and diastolic heart failure, chronic. 7. History of benign prostatic hypertrophy. Dr. Mulligan, this patient was seen in cardiac consultation. I have reviewed the [facility] records, as mentioned extensive records have been copied and placed in the patient's chart in case any of my colleagues would like to refer to that. He has had an electrocardiogram done here that had shown left bundle-branch conduction defect and that appears to be unchanged from previous. His echocardiogram as mentioned with wall motion abnormalities in the inferior wall and posterior wall, which based on my review of the echocardiogram report seemed similar to what he has had back in 2017 despite having had a cardiac catheterization at that time. His cardiac enzymes are negative. I think he is cardiovascularly stable, although his blood pressures are quite high despite the fact that he has a cardiomyopathy and I think his medications should be restarted to correct his LV dysfunction and to prevent recurrent heart failure at the hospital. He has been listed as taking Coreg. He has been on hydralazine and Effient as well as Flomax. I will resume those medications, especially the hydralazine and Isordil combination in light of the fact that he, because of renal insufficiency, is unable to take YOSHI inhibitors to manage his blood pressure. His IV fluids if any that he may be taking at this time will be discontinued as his blood pressure is quite elevated at this time. His beta-blockers will be continued, and I will follow the patient along with you. He is treatment of his renal insufficiency. I will leave that on for the time being, but may need discontinuation. Gumaro Newman M.D. DR: DAJUAN JOB#: [id number] CC:
[2017-09-26 07:26] LABS: BASOPHILS % (AUTO) 0.4 % (0.0-2.0); HEMATOCRIT 35.3 % (42.0-52.0); HEMOGLOBIN 11.8 G/DL (14.2-18.0); LYMPHOCYTES % (AUTO) 18.5 % (20.0-45.0); MEAN CORPUSCULAR VOLUME 92 FL (80-99); MONOCYTES % (AUTO) 7.8 % (1.0-10.0); NEUTROPHILS % (AUTO) 71.3 % (45.0-75.0); PLATELET COUNT 136 K/UL (150-450); RED BLOOD COUNT 3.85 M/UL (4.70-6.10); RED CELL DISTRIBUTION WIDTH 13.5 % (11.6-14.8); WHITE BLOOD COUNT 6.9 K/UL (4.8-10.8)
[2017-09-26 08:00] VITALS: BP 135/77
[2017-09-26 08:15] LABS: AMMONIA 29 umol/L (11-32)
[2017-09-26 08:54] LABS: % IRON SATURATION 21 % (15-50); IRON 55 ug/dL (50-175); TOTAL IRON BINDING CAPACITY 263 ug/dL (250-450)
[2017-09-26 08:57] LABS: ALANINE AMINOTRANSFERASE 14 U/L (12-78); ALBUMIN 3.1 G/DL (3.4-5.0); ALKALINE PHOSPHATASE 86 U/L (46-116); ANION GAP 8 mmol/L (5-15); ASPARTATE AMINO TRANSFERASE 14 U/L (15-37); BILIRUBIN,TOTAL 0.6 MG/DL (0.2-1.0); BLOOD UREA NITROGEN 31 mg/dL (7-18); CALCIUM 8.7 MG/DL (8.5-10.1); CARBON DIOXIDE 24 MMOL/L (21-32); CHLORIDE 108 MMOL/L (98-107); CHOLESTEROL 137 MG/DL (< 200); CREATININE 2.2 MG/DL (0.55-1.30); FERRITIN 62 NG/ML (8-388); HDL CHOLESTEROL 37 MG/DL (40-60); SODIUM 140 MMOL/L (136-145); TRIGLYCERIDES 62 MG/DL (30-150)
[2017-09-26] MEDS: Aspirin EC 81mg tab ORAL SCH (09:37)
[2017-09-26] MEDS: Carvedilol 12.5mg tab ORAL SCH ×2 (09:38→18:31)
[2017-09-26 09:42] LABS: CREATINE KINASE 53 U/L (26-308); GAMMA GLUTAMYL TRANSPEPTIDASE 13 U/L (5-85)
[2017-09-26] MEDS: Heparin 5000 units/ml inj SUBQ SCH ×2 (09:43→21:00)
[2017-09-26 12:00] VITALS: BP 127/70
--- NOTE | 2017-09-26 12:18 | Neurology Progress Note ---
Objective Physical Exam Last Vital Signs Date Time Temp Pulse Resp B/P (MAP) Pulse Ox O2 Delivery O2 Flow Rate FiO2 09/26/17 09:38 71 135/77 09/26/17 08:00 97.7 20 96 97.7 09/25/17 19:52 Room Air 09/25/17 19:07 21 Laboratory Tests Test 09/26/17 05:10 White Blood Count 6.9 K/UL (4.8-10.8) Red Blood Count 3.85 M/UL (4.70-6.10) L Hemoglobin 11.8 G/DL (14.2-18.0) L Hematocrit 35.3 % (42.0-52.0) L Mean Corpuscular Volume 92 FL (80-99) Mean Corpuscular Hemoglobin 30.7 PG (27.0-31.0) Mean Corpuscular Hemoglobin Concent 33.5 G/DL (32.0-36.0) Red Cell Distribution Width 13.5 % (11.6-14.8) Platelet Count 136 K/UL (150-450) L Mean Platelet Volume 7.8 FL (6.5-10.1) Neutrophils (%) (Auto) 71.3 % (45.0-75.0) Lymphocytes (%) (Auto) 18.5 % (20.0-45.0) L Monocytes (%) (Auto) 7.8 % (1.0-10.0) Eosinophils (%) (Auto) 2.0 % (0.0-3.0) Basophils (%) (Auto) 0.4 % (0.0-2.0) Prothrombin Time 10.6 SEC (9.30-11.50) Prothromb Time International Ratio 1.0 (0.9-1.1) Activated Partial Thromboplast Time 22 SEC (23-33) L Sodium Level 140 MMOL/L (136-145) Potassium Level 4.0 MMOL/L (3.5-5.1) Chloride Level 108 MMOL/L (98-107) H Carbon Dioxide Level 24 MMOL/L (21-32) Anion Gap 8 mmol/L (5-15) Blood Urea Nitrogen 31 mg/dL (7-18) H Creatinine 2.2 MG/DL (0.55-1.30) H Estimat Glomerular Filtration Rate mL/min (>60) Glucose Level 92 MG/DL (74-106) Hemoglobin A1c 5.4 % (4.3-6.0) Uric Acid 7.5 MG/DL (2.6-7.2) H Calcium Level 8.7 MG/DL (8.5-10.1) Iron Level 55 ug/dL (50-175) Total Iron Binding Capacity 263 ug/dL (250-450) Percent Iron Saturation 21 % (15-50) Unsaturated Iron Binding 208 ug/dL (112-346) Ferritin 62 NG/ML (8-388) Total Bilirubin 0.6 MG/DL (0.2-1.0) Gamma Glutamyl Transpeptidase 13 U/L (5-85) Aspartate Amino Transf (AST/SGOT) 14 U/L (15-37) L Alanine Aminotransferase (ALT/SGPT) 14 U/L (12-78) Alkaline Phosphatase 86 U/L (46-116) Ammonia 29 umol/L (11-32) Total Creatine Kinase 53 U/L (26-308) Troponin I 0.059 ng/mL (0.000-0.056) Total Protein 6.2 G/DL (6.4-8.2) L Albumin 3.1 G/DL (3.4-5.0) L Globulin 3.1 g/dL Albumin/Globulin Ratio 1.0 (1.0-2.7) Triglycerides Level 62 MG/DL (30-150) Cholesterol Level 137 MG/DL (< 200) LDL Cholesterol 96 mg/dL (<100) HDL Cholesterol 37 MG/DL (40-60) L Cholesterol/HDL Ratio 3.7 (3.3-4.4) Vitamin B12 Level 203 PG/ML (193-986) Folate 11.4 NG/ML (8.6-58.9) Thyroid Stimulating Hormone (TSH) 3.519 uiU/mL (0.358-3.740) Impression/Recommendations Status: stable Recommendations #[id number] JIHAN TEE Sep 26, 2017 12:18
--- NOTE | 2017-09-26 12:26 | Neurology Progress Note ---
Objective Physical Exam Last Vital Signs Date Time Temp Pulse Resp B/P (MAP) Pulse Ox O2 Delivery O2 Flow Rate FiO2 09/26/17 09:38 71 135/77 09/26/17 08:00 97.7 20 96 97.7 09/25/17 19:52 Room Air 09/25/17 19:07 21 Laboratory Tests Test 09/26/17 05:10 White Blood Count 6.9 K/UL (4.8-10.8) Red Blood Count 3.85 M/UL (4.70-6.10) L Hemoglobin 11.8 G/DL (14.2-18.0) L Hematocrit 35.3 % (42.0-52.0) L Mean Corpuscular Volume 92 FL (80-99) Mean Corpuscular Hemoglobin 30.7 PG (27.0-31.0) Mean Corpuscular Hemoglobin Concent 33.5 G/DL (32.0-36.0) Red Cell Distribution Width 13.5 % (11.6-14.8) Platelet Count 136 K/UL (150-450) L Mean Platelet Volume 7.8 FL (6.5-10.1) Neutrophils (%) (Auto) 71.3 % (45.0-75.0) Lymphocytes (%) (Auto) 18.5 % (20.0-45.0) L Monocytes (%) (Auto) 7.8 % (1.0-10.0) Eosinophils (%) (Auto) 2.0 % (0.0-3.0) Basophils (%) (Auto) 0.4 % (0.0-2.0) Prothrombin Time 10.6 SEC (9.30-11.50) Prothromb Time International Ratio 1.0 (0.9-1.1) Activated Partial Thromboplast Time 22 SEC (23-33) L Sodium Level 140 MMOL/L (136-145) Potassium Level 4.0 MMOL/L (3.5-5.1) Chloride Level 108 MMOL/L (98-107) H Carbon Dioxide Level 24 MMOL/L (21-32) Anion Gap 8 mmol/L (5-15) Blood Urea Nitrogen 31 mg/dL (7-18) H Creatinine 2.2 MG/DL (0.55-1.30) H Estimat Glomerular Filtration Rate mL/min (>60) Glucose Level 92 MG/DL (74-106) Hemoglobin A1c 5.4 % (4.3-6.0) Uric Acid 7.5 MG/DL (2.6-7.2) H Calcium Level 8.7 MG/DL (8.5-10.1) Iron Level 55 ug/dL (50-175) Total Iron Binding Capacity 263 ug/dL (250-450) Percent Iron Saturation 21 % (15-50) Unsaturated Iron Binding 208 ug/dL (112-346) Ferritin 62 NG/ML (8-388) Total Bilirubin 0.6 MG/DL (0.2-1.0) Gamma Glutamyl Transpeptidase 13 U/L (5-85) Aspartate Amino Transf (AST/SGOT) 14 U/L (15-37) L Alanine Aminotransferase (ALT/SGPT) 14 U/L (12-78) Alkaline Phosphatase 86 U/L (46-116) Ammonia 29 umol/L (11-32) Total Creatine Kinase 53 U/L (26-308) Troponin I 0.059 ng/mL (0.000-0.056) Total Protein 6.2 G/DL (6.4-8.2) L Albumin 3.1 G/DL (3.4-5.0) L Globulin 3.1 g/dL Albumin/Globulin Ratio 1.0 (1.0-2.7) Triglycerides Level 62 MG/DL (30-150) Cholesterol Level 137 MG/DL (< 200) LDL Cholesterol 96 mg/dL (<100) HDL Cholesterol 37 MG/DL (40-60) L Cholesterol/HDL Ratio 3.7 (3.3-4.4) Vitamin B12 Level 203 PG/ML (193-986) Folate 11.4 NG/ML (8.6-58.9) Thyroid Stimulating Hormone (TSH) 3.519 uiU/mL (0.358-3.740) Impression/Recommendations Problems: (1) posible HTN encephalopathy (2) ICD (implantable cardioverter-defibrillator) in place (3) Cardiomyopathy Status: stable Recommendations #[id number] JIHAN TEE Sep 26, 2017 12:26
--- NOTE | 2017-09-26 12:36 | Neurology Progress Note ---
Objective Physical Exam Last Vital Signs Date Time Temp Pulse Resp B/P (MAP) Pulse Ox O2 Delivery O2 Flow Rate FiO2 09/26/17 12:00 97.7 66 19 127/70 96 97.7 09/25/17 19:52 Room Air 09/25/17 19:07 21 Laboratory Tests Test 09/26/17 05:10 White Blood Count 6.9 K/UL (4.8-10.8) Red Blood Count 3.85 M/UL (4.70-6.10) L Hemoglobin 11.8 G/DL (14.2-18.0) L Hematocrit 35.3 % (42.0-52.0) L Mean Corpuscular Volume 92 FL (80-99) Mean Corpuscular Hemoglobin 30.7 PG (27.0-31.0) Mean Corpuscular Hemoglobin Concent 33.5 G/DL (32.0-36.0) Red Cell Distribution Width 13.5 % (11.6-14.8) Platelet Count 136 K/UL (150-450) L Mean Platelet Volume 7.8 FL (6.5-10.1) Neutrophils (%) (Auto) 71.3 % (45.0-75.0) Lymphocytes (%) (Auto) 18.5 % (20.0-45.0) L Monocytes (%) (Auto) 7.8 % (1.0-10.0) Eosinophils (%) (Auto) 2.0 % (0.0-3.0) Basophils (%) (Auto) 0.4 % (0.0-2.0) Prothrombin Time 10.6 SEC (9.30-11.50) Prothromb Time International Ratio 1.0 (0.9-1.1) Activated Partial Thromboplast Time 22 SEC (23-33) L Sodium Level 140 MMOL/L (136-145) Potassium Level 4.0 MMOL/L (3.5-5.1) Chloride Level 108 MMOL/L (98-107) H Carbon Dioxide Level 24 MMOL/L (21-32) Anion Gap 8 mmol/L (5-15) Blood Urea Nitrogen 31 mg/dL (7-18) H Creatinine 2.2 MG/DL (0.55-1.30) H Estimat Glomerular Filtration Rate mL/min (>60) Glucose Level 92 MG/DL (74-106) Hemoglobin A1c 5.4 % (4.3-6.0) Uric Acid 7.5 MG/DL (2.6-7.2) H Calcium Level 8.7 MG/DL (8.5-10.1) Iron Level 55 ug/dL (50-175) Total Iron Binding Capacity 263 ug/dL (250-450) Percent Iron Saturation 21 % (15-50) Unsaturated Iron Binding 208 ug/dL (112-346) Ferritin 62 NG/ML (8-388) Total Bilirubin 0.6 MG/DL (0.2-1.0) Gamma Glutamyl Transpeptidase 13 U/L (5-85) Aspartate Amino Transf (AST/SGOT) 14 U/L (15-37) L Alanine Aminotransferase (ALT/SGPT) 14 U/L (12-78) Alkaline Phosphatase 86 U/L (46-116) Ammonia 29 umol/L (11-32) Total Creatine Kinase 53 U/L (26-308) Troponin I 0.059 ng/mL (0.000-0.056) Total Protein 6.2 G/DL (6.4-8.2) L Albumin 3.1 G/DL (3.4-5.0) L Globulin 3.1 g/dL Albumin/Globulin Ratio 1.0 (1.0-2.7) Triglycerides Level 62 MG/DL (30-150) Cholesterol Level 137 MG/DL (< 200) LDL Cholesterol 96 mg/dL (<100) HDL Cholesterol 37 MG/DL (40-60) L Cholesterol/HDL Ratio 3.7 (3.3-4.4) Vitamin B12 Level 203 PG/ML (193-986) Folate 11.4 NG/ML (8.6-58.9) Thyroid Stimulating Hormone (TSH) 3.519 uiU/mL (0.358-3.740) Impression/Recommendations Problems: (1) posible HTN encephalopathy (2) ICD (implantable cardioverter-defibrillator) in place (3) Cardiomyopathy (4) Carotid stenosis, right Status: stable Recommendations #[id number] JIHAN TEE Sep 26, 2017 12:36
--- NOTE | 2017-09-26 12:59 | General Progress Note ---
Assessment/Plan Status: unchanged Assessment/Plan encephalopathy agitation dementia with behavioral dist ativan Subjective Date patient seen: Sep 26, 2017 Neurologic/Psychiatric: Reports: anxiety, depressed, emotional problems Allergies: Coded Allergies: ACETAMINOPHEN (Verified Adverse Reaction, Severe, Extreme confusion, delerium, 01/19/16) HYDROCODONE (Verified Adverse Reaction, Severe, Extreme confusion, delerium, 01/19/16) Objective Last 24 Hour Vital Signs Date Time Temp Pulse Resp B/P (MAP) Pulse Ox O2 Delivery O2 Flow Rate FiO2 09/26/17 12:00 97.7 66 19 127/70 96 97.7 09/26/17 09:38 71 135/77 09/26/17 09:37 135/77 09/26/17 08:00 97.7 71 20 135/77 96 97.7 09/26/17 05:11 160/82 09/26/17 04:34 98.3 72 18 160/82 94 98.3 09/26/17 00:00 97.9 76 20 143/54 96 97.9 09/25/17 22:34 153/82 09/25/17 19:52 98.2 76 18 153/82 96 Room Air 98.2 09/25/17 19:07 82 18 Room Air 21 09/25/17 18:23 69 161/99 09/25/17 18:21 161/99 09/25/17 18:16 161/99 09/25/17 16:22 97.5 69 18 161/99 97 Room Air 97.5 Intake and Output 09/25/17 09/26/17 19:00 07:00 Intake Total 50 ml 790 ml Output Total 400 ml Balance -350 ml 790 ml Intake Oral 240 ml IV Total 50 ml 550 ml Output Urine Total 400 ml # Voids 2 # Bowel Movements 2 1 Laboratory Tests 09/26/17 05:10: White Blood Count 6.9, Red Blood Count 3.85L, Hemoglobin 11.8L, Hematocrit 35.3L , Mean Corpuscular Volume 92, Mean Corpuscular Hemoglobin 30.7, Mean Corpuscular Hemoglobin Concent 33.5, Red Cell Distribution Width 13.5, Platelet Count 136L, Mean Platelet Volume 7.8, Neutrophils (%) (Auto) 71.3, Lymphocytes ( %) (Auto) 18.5L, Monocytes (%) (Auto) 7.8, Eosinophils (%) (Auto) 2.0, Basophils (%) (Auto) 0.4, Prothrombin Time 10.6, Prothromb Time International Ratio 1.0, Activated Partial Thromboplast Time 22L, Sodium Level 140, Potassium Level 4.0, Chloride Level 108H, Carbon Dioxide Level 24, Anion Gap 8, Blood Urea Nitrogen 31H, Creatinine 2.2H, Estimat Glomerular Filtration Rate , Glucose Level 92, Hemoglobin A1c 5.4, Uric Acid 7.5H, Calcium Level 8.7, Iron Level 55, Total Iron Binding Capacity 263, Percent Iron Saturation 21, Unsaturated Iron Binding 208, Ferritin 62, Total Bilirubin 0.6, Gamma Glutamyl Transpeptidase 13, Aspartate Amino Transf (AST/SGOT) 14L, Alanine Aminotransferase (ALT/SGPT) 14, Alkaline Phosphatase 86, Ammonia 29, Total Creatine Kinase 53, Troponin I 0.059H, Total Protein 6.2L, Albumin 3.1L, Globulin 3.1, Albumin/Globulin Ratio 1.0, Triglycerides Level 62, Cholesterol Level 137, LDL Cholesterol 96, HDL Cholesterol 37L, Cholesterol/HDL Ratio 3.7, Vitamin B12 Level 203, Folate 11.4, Thyroid Stimulating Hormone (TSH) 3.519 Height (Feet): 5 Height (Inches): 7.00 Weight (Pounds): 133 General Appearance: no apparent distress, alert, confused, agitated Virginia Huffman M.D. Sep 26, 2017 12:59
--- NOTE | 2017-09-26 14:45 | Nephrology Progress Note ---
Assessment/Plan Problem List: (1) Cardiomyopathy (2) Encephalopathy (3) Renal insufficiency (4) ICD (implantable cardioverter-defibrillator) in place (5) Cardiomyopathy Assessment Renal failure- Chronic vs acute Anemia Encephalopathy / CVA Pacer Dementia Cardiomyopathy Ej Fx 40% Plan Slow Hydration Urine studies Kidney EDWIN avoid nephrotoxics per consultants Subjective ROS Limited/Unobtainable: No Objective Objective Last 24 Hour Vital Signs Date Time Temp Pulse Resp B/P (MAP) Pulse Ox O2 Delivery O2 Flow Rate FiO2 09/26/17 13:19 127/70 09/26/17 13:19 127/70 09/26/17 12:00 97.7 66 19 127/70 96 97.7 09/26/17 09:38 71 135/77 09/26/17 09:37 135/77 09/26/17 08:00 97.7 71 20 135/77 96 97.7 09/26/17 05:11 160/82 09/26/17 04:34 98.3 72 18 160/82 94 98.3 09/26/17 00:00 97.9 76 20 143/54 96 97.9 09/25/17 22:34 153/82 09/25/17 19:52 98.2 76 18 153/82 96 Room Air 98.2 09/25/17 19:07 82 18 Room Air 21 09/25/17 18:23 69 161/99 09/25/17 18:21 161/99 09/25/17 18:16 161/99 09/25/17 16:22 97.5 69 18 161/99 97 Room Air 97.5 Intake and Output 09/25/17 09/26/17 19:00 07:00 Intake Total 50 ml 790 ml Output Total 400 ml Balance -350 ml 790 ml Intake Oral 240 ml IV Total 50 ml 550 ml Output Urine Total 400 ml # Voids 2 # Bowel Movements 2 1 Laboratory Tests 09/26/17 05:10: White Blood Count 6.9, Red Blood Count 3.85L, Hemoglobin 11.8L, Hematocrit 35.3L , Mean Corpuscular Volume 92, Mean Corpuscular Hemoglobin 30.7, Mean Corpuscular Hemoglobin Concent 33.5, Red Cell Distribution Width 13.5, Platelet Count 136L, Mean Platelet Volume 7.8, Neutrophils (%) (Auto) 71.3, Lymphocytes ( %) (Auto) 18.5L, Monocytes (%) (Auto) 7.8, Eosinophils (%) (Auto) 2.0, Basophils (%) (Auto) 0.4, Prothrombin Time 10.6, Prothromb Time International Ratio 1.0, Activated Partial Thromboplast Time 22L, Sodium Level 140, Potassium Level 4.0, Chloride Level 108H, Carbon Dioxide Level 24, Anion Gap 8, Blood Urea Nitrogen 31H, Creatinine 2.2H, Estimat Glomerular Filtration Rate , Glucose Level 92, Hemoglobin A1c 5.4, Uric Acid 7.5H, Calcium Level 8.7, Iron Level 55, Total Iron Binding Capacity 263, Percent Iron Saturation 21, Unsaturated Iron Binding 208, Ferritin 62, Total Bilirubin 0.6, Gamma Glutamyl Transpeptidase 13, Aspartate Amino Transf (AST/SGOT) 14L, Alanine Aminotransferase (ALT/SGPT) 14, Alkaline Phosphatase 86, Ammonia 29, Total Creatine Kinase 53, Troponin I 0.059H, Total Protein 6.2L, Albumin 3.1L, Globulin 3.1, Albumin/Globulin Ratio 1.0, Triglycerides Level 62, Cholesterol Level 137, LDL Cholesterol 96, HDL Cholesterol 37L, Cholesterol/HDL Ratio 3.7, Vitamin B12 Level 203, Folate 11.4, Thyroid Stimulating Hormone (TSH) 3.519 Height (Feet): 5 Height (Inches): 7.00 Weight (Pounds): 133 General Appearance: no apparent distress Objective no change ANGÉLICA MARINO Sep 26, 2017 14:45
[2017-09-26 16:00] VITALS: BP 149/86
--- NOTE | 2017-09-26 17:39 | Pulmonology Progress Note ---
Assessment/Plan Problems: (1) Altered mental status (2) Encephalopathy (3) CVA (cerebral vascular accident) (4) ICD (implantable cardioverter-defibrillator) in place (5) Dementia (6) Cardiomyopathy Assessment/Plan mental status improing bp controlled check electroltyes pt/ot neuro and cardio notes appreciated pt/ot dc planning soon. Subjective ROS Limited/Unobtainable: No Constitutional: Reports: no symptoms HEENT: Repors: no symptoms Respiratory: Reports: no symptoms Allergies: Coded Allergies: ACETAMINOPHEN (Verified Adverse Reaction, Severe, Extreme confusion, delerium, 01/19/16) HYDROCODONE (Verified Adverse Reaction, Severe, Extreme confusion, delerium, 01/19/16) Objective Last 24 Hour Vital Signs Date Time Temp Pulse Resp B/P (MAP) Pulse Ox O2 Delivery O2 Flow Rate FiO2 09/26/17 16:00 98.1 71 18 149/86 96 Room Air 98.1 09/26/17 13:19 127/70 09/26/17 13:19 127/70 09/26/17 12:00 97.7 66 19 127/70 96 97.7 09/26/17 09:38 71 135/77 09/26/17 09:37 135/77 09/26/17 08:00 97.7 71 20 135/77 96 97.7 09/26/17 05:11 160/82 09/26/17 04:34 98.3 72 18 160/82 94 98.3 09/26/17 00:00 97.9 76 20 143/54 96 97.9 09/25/17 22:34 153/82 09/25/17 19:52 98.2 76 18 153/82 96 Room Air 98.2 09/25/17 19:07 82 18 Room Air 21 09/25/17 18:23 69 161/99 09/25/17 18:21 161/99 09/25/17 18:16 161/99 Intake and Output 09/25/17 09/26/17 19:00 07:00 Intake Total 50 ml 790 ml Output Total 400 ml Balance -350 ml 790 ml Intake Oral 240 ml IV Total 50 ml 550 ml Output Urine Total 400 ml # Voids 2 # Bowel Movements 2 1 Objective General Appearance: WD/WN Lines, tubes and drains: peripheral HEENT: normocephalic, atraumatic Neck: non-tender, normal alignment Respiratory/Chest: chest wall non-tender, lungs clear Cardiovascular/Chest: normal peripheral pulses, normal rate Abdomen: normal bowel sounds, non tender Extremities: normal range of motion, non-tender Skin Exam: normal pigmentation Microbiology Date/Time Source Procedure Growth Status 09/25/17 02:15 Blood Blood Culture - Preliminary NO GROWTH AFTER 24 HOURS Resulted 09/25/17 02:00 Blood Blood Culture - Preliminary NO GROWTH AFTER 24 HOURS Resulted Laboratory Tests 09/26/17 05:10: White Blood Count 6.9, Red Blood Count 3.85L, Hemoglobin 11.8L, Hematocrit 35.3L , Mean Corpuscular Volume 92, Mean Corpuscular Hemoglobin 30.7, Mean Corpuscular Hemoglobin Concent 33.5, Red Cell Distribution Width 13.5, Platelet Count 136L, Mean Platelet Volume 7.8, Neutrophils (%) (Auto) 71.3, Lymphocytes ( %) (Auto) 18.5L, Monocytes (%) (Auto) 7.8, Eosinophils (%) (Auto) 2.0, Basophils (%) (Auto) 0.4, Prothrombin Time 10.6, Prothromb Time International Ratio 1.0, Activated Partial Thromboplast Time 22L, Sodium Level 140, Potassium Level 4.0, Chloride Level 108H, Carbon Dioxide Level 24, Anion Gap 8, Blood Urea Nitrogen 31H, Creatinine 2.2H, Estimat Glomerular Filtration Rate , Glucose Level 92, Hemoglobin A1c 5.4, Uric Acid 7.5H, Calcium Level 8.7, Iron Level 55, Total Iron Binding Capacity 263, Percent Iron Saturation 21, Unsaturated Iron Binding 208, Ferritin 62, Total Bilirubin 0.6, Gamma Glutamyl Transpeptidase 13, Aspartate Amino Transf (AST/SGOT) 14L, Alanine Aminotransferase (ALT/SGPT) 14, Alkaline Phosphatase 86, Ammonia 29, Total Creatine Kinase 53, Troponin I 0.059H, Total Protein 6.2L, Albumin 3.1L, Globulin 3.1, Albumin/Globulin Ratio 1.0, Triglycerides Level 62, Cholesterol Level 137, LDL Cholesterol 96, HDL Cholesterol 37L, Cholesterol/HDL Ratio 3.7, Vitamin B12 Level 203, Folate 11.4, Thyroid Stimulating Hormone (TSH) 3.519 Current Medications Medications (Trade) Dose Ordered Sig/Ricki Route PRN Reason Start Time Stop Time Status Last Admin Dose Admin Albuterol/ Ipratropium (Albuterol/ Ipratropium) 3 ml Q4H PRN HHN Shortness of Breath 09/25/17 05:30 09/30/17 05:29 Aspirin (Ecotrin) 81 mg DAILY ORAL 09/25/17 18:00 10/25/17 17:59 09/26/17 09:37 Carvedilol (Coreg) 12.5 mg BID ORAL 09/25/17 18:00 10/25/17 08:59 09/26/17 09:38 Clonidine HCl (Catapres Tab) 0.1 mg Q4H PRN ORAL SBP 160 and up 09/25/17 17:00 10/25/17 16:59 Clopidogrel Bisulfate (Plavix) 75 mg DAILY ORAL 09/25/17 18:00 10/25/17 17:59 09/26/17 09:36 Dextrose (Dextrose 50%) STAT PRN IV Hypoglycemia 09/25/17 05:30 10/25/17 05:29 Dextrose/Sodium Chloride 1,000 ml @ 50 mls/hr Q20H IV 09/25/17 05:27 10/25/17 05:26 09/25/17 23:05 Heparin Sodium (Porcine) (Heparin 5000 units/ml) 5,000 units EVERY 12 HOURS SUBQ 09/25/17 09:00 10/25/17 08:59 09/26/17 09:43 Hydralazine HCl (Apresoline) 50 mg Q8HR ORAL 09/25/17 18:00 10/25/17 17:59 09/26/17 13:19 Isosorbide Dinitrate (Isordil) 10 mg TID ORAL 09/25/17 18:00 10/25/17 17:59 09/26/17 13:19 Lorazepam (Ativan 2mg/ml 1ml) 0.5 mg Q4H PRN IV For Anxiety 09/25/17 05:30 10/02/17 05:29 Morphine Sulfate (Morphine Sulfate) 1 mg Q4H PRN IVP For Pain 7-10 09/25/17 05:30 10/02/17 05:29 Nitroglycerin (Ntg) 0.4 mg Q5M X 3 DOSES PRN SL Prn Chest Pain 09/25/17 05:30 10/25/17 05:29 Ondansetron HCl (Zofran) 4 mg Q6H PRN IVP Nausea & Vomiting 09/25/17 05:30 10/25/17 05:29 Polyethylene Glycol (Miralax) 17 gm HSPRN PRN ORAL Constipation 09/25/17 05:30 10/25/17 05:29 Tamsulosin HCl (Flomax) 0.4 mg BEDTIME ORAL 09/25/17 21:00 10/25/17 20:59 09/25/17 20:16 Temazepam (Restoril) 15 mg HSPRN PRN ORAL Insomnia 09/25/17 05:30 10/02/17 05:29 JENNIE MAYA Sep 26, 2017 17:39
--- NOTE | 2017-09-26 20:30 | Consultation ---
DATE OF CONSULTATION: 09/26/2017 NEUROLOGICAL CONSULTATION CONSULTING PHYSICIAN: Sami Armstrong M.D. REQUESTING PHYSICIAN: Khadra Mulligan M.D. HISTORY OF PRESENT ILLNESS: The patient is a 76-year-old man seen in neurological consultation to evaluate the episodes of transient confusional state, generalized weakness. The patient currently has no recollection of events stating that he is not sure why he is in the hospital. According to chart notes, the patient was at home. Around 6 p.m. while eating he was noticed to be more confused than usual. His symptoms somewhat progressed and with this he was brought to emergency room. His vital signs on admission included blood pressure 186/87. He was afebrile. Heart rate of 72. His visual acuity according to the family was worse than usual. Initial laboratory work revealed mild anemia, hemoglobin 12.2, hematocrit 35.8. Coagulation panel was normal. Urinalysis was normal. Chemistry panel with BUN of 40, creatinine 2.3, blood sugar 121. Low B12 of 203 and folate 111.4. Normal TSH. Unremarkable lipid panel but troponin elevated 0.059. Normal liver function. Uric acid 7.5. Chest x-ray, no acute abnormalities noted. CT of the brain though revealed abnormal bilateral occipital low attenuation more on the left. There was probably small lacunar infarct, right basal ganglia. No evidence of acute abnormalities. The patient suspected to have subacute stroke in the posterior circulation or a posterior reversible encephalopathy syndrome. At this point, Neurology consult was requested. According to available medical records, the patient's treating physician is Dr. Zacarias. His note from October 2016, the patient's medical issues listed as follow. He had a recent right nephrolithiasis status post laser lithotripsy and ureteral stent placement on October 18, 2016. Essential hypertension maintained on carvedilol, hydralazine, Lasix. Coronary artery disease without angina pectoris status post CABG. Hyperlipidemia with the treatment included aspirin, prasugrel, atorvastatin, carvedilol. Chronic combined systolic and diastolic congestive heart failure status post ICD placement in 2012 for ventricular tachycardia. His echocardiogram revealed ejection fraction of 37%. He has chronic renal insufficiency. 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 Vascular dementia without behavioral abnormalities. Insomnia with treatment including Namenda, Remeron, Ambien. Benign prostatic hypertrophy currently on Flomax. ALLERGIES: Acetaminophen and hydrocodone. MEDICATIONS: Following admission, the patient remained on treatment with aspirin, Coreg, clonidine, Plavix, albuterol, subcutaneous heparin, hydralazine, isosorbide, p.r.n. Ativan, morphine, nitroglycerin, Zofran, Flomax, and Restoril. Since admission to present, there was no paroxysmal event noted. FAMILY HISTORY: Noncontributory. SOCIAL HISTORY: Lives with the family and has caregiver. No alcohol. No drug abuse. Nonsmoker. REVIEW OF SYMPTOMS: The patient indicated currently he is feeling well. He has no complaints. Denying headache, dizziness. Admitted having not clear vision for the last few months. Denies chest pain. No palpitations. No respiratory problems. Denies abdominal pain or discomfort. No urine or bowel incontinence. He indicated that he is ambulatory, walking without assistance. PHYSICAL EXAMINATION: GENERAL: A well-developed and well-nourished pleasant elderly man, not in acute distress, lying comfortably in bed. VITAL SIGNS: Blood pressure 135/77, temperature 97.7. HEENT: Head normocephalic. No evidence of trauma. Eyes, ears, and throat are clear. NECK: Supple. No meningeal signs. ICD in place noted. EXTREMITIES: Upper and lower extremities without clubbing, cyanosis, or edema. Peripheral pulses 1+ symmetric. MENTAL STATUS: He is alert and oriented x3 but forgetful, poor historian. He is pleasant, cooperative, follows commands. No aphasia. No apraxia noted. CRANIAL NERVE II: Pupils 3 mm responding to light and accommodation. Extraocular movement limitation, right gaze. Visual acuity is finger count. Fundi poorly visualized. CRANIAL NERVE V: Normal corneal responses. CRANIAL NERVE VII: No gross asymmetry. Normal hearing. CRANIAL NERVE IX THROUGH XII: Tongue is in midline. Symmetric palate elevation. MOTOR EXAMINATION: Normal muscle tone. Strength 5/5 in all extremities. SKIN: There is action tremor bilaterally but more on the left arm. Deep tendon reflexes 2+ bilaterally. Plantar response is mute. SENSORY EXAMINATION: Normal to pinprick and light touch. GAIT: Slow, but stable. IMPRESSION: 1. This is a 76-year-old man with transient confusional state, probably result of underlying metabolic derangement. No evidence of seizure activity, doubt TIA. 2. Status post occipital infarct presumably two years ago during CABG, this appear stable. 3. Action tremor of both upper extremities. 4. Mild vascular dementia. 5. Renal insufficiency. 6. Hypertension. 7. Coronary artery disease, status post CABG. 8. Hyperlipidemia. 9. CHF. The patient has radiological evidence of old strokes in the occipital region resembling PRES. This chronic condition developed two years ago. No clinical evidence of PRES noted. Currently the patient appears to be in his baseline. He is appropriately maintained on antiplatelets and statins. The patient will be observed for any paroxysmal events which may require additional diagnostic studies. Thank you for allowing me to see this interesting patient in neurological consultation. Sami Salma Armstrong DR: Malik JOB#: [id number] CC:
[2017-09-26] MEDS: D5 1/2NS 1,000 ML IV SCH (21:24)
[2017-09-26] MEDS: Tamsulosin 0.4mg cap ORAL SCH (21:24)
[2017-09-27] VITALS: BP 157/85
[2017-09-27 04:00] VITALS: BP 160/86
[2017-09-27] MEDS: HydrALAZINE 50mg tab ORAL SCH ×3 (05:20→21:07)
[2017-09-27 08:26] VITALS: BP 149/80
[2017-09-27] MEDS: Heparin 5000 units/ml inj SUBQ SCH ×2 (09:00→21:00)
[2017-09-27] MEDS: Carvedilol 12.5mg tab ORAL SCH (09:00)
[2017-09-27] MEDS: Aspirin EC 81mg tab ORAL SCH (09:00)
--- NOTE | 2017-09-27 10:54 | Diagnostic Imaging Report ---
Indication:Elevated Bun and Creatinine. Technique: Grayscale and duplex Doppler imaging of the kidneys performed. Comparison: None Findings: The size, contour, and echogenicity of both kidneys are within normal limits. 1 cm cyst demonstrated in the right kidney. Both kidneys measure about 10 cm in length. There is no hydronephrosis. The IVC and urinary bladder are unremarkable. IMPRESSION: Right renal cyst. Negative exam
[2017-09-27 11:39] VITALS: BP 167/95
--- NOTE | 2017-09-27 11:52 | Nephrology Progress Note ---
Assessment/Plan Problem List: (1) Cardiomyopathy (2) Encephalopathy (3) Renal insufficiency (4) ICD (implantable cardioverter-defibrillator) in place (5) Cardiomyopathy Assessment Renal failure- Chronic vs acute Anemia Encephalopathy / CVA Pacer Dementia Cardiomyopathy Ej Fx 40% Plan no labs today Slow Hydration Urine studies Kidney EDWIN unremarkable avoid nephrotoxics per consultants Subjective ROS Limited/Unobtainable: No Constitutional: Reports: malaise Objective Objective Last 24 Hour Vital Signs Date Time Temp Pulse Resp B/P (MAP) Pulse Ox O2 Delivery O2 Flow Rate FiO2 09/27/17 11:39 98.2 84 20 167/95 95 98.2 09/27/17 09:00 149/80 09/27/17 09:00 73 149/80 09/27/17 08:26 99.5 73 20 149/80 95 99.5 09/27/17 07:56 95 20 Room Air 21 09/27/17 05:20 160/86 09/27/17 04:00 98.1 76 20 160/86 95 98.1 09/27/17 00:00 98.2 76 21 157/85 94 98.2 09/26/17 21:32 71 18 Room Air 21 09/26/17 21:25 143/71 09/26/17 18:31 149/86 09/26/17 18:31 71 149/86 09/26/17 16:00 98.1 71 18 149/86 96 Room Air 98.1 09/26/17 13:19 127/70 09/26/17 13:19 127/70 09/26/17 12:00 97.7 66 19 127/70 96 97.7 Intake and Output 09/26/17 09/27/17 19:00 07:00 Intake Total 950 ml 550 ml Output Total 50 ml Balance 950 ml 500 ml Intake Oral 600 ml IV Total 350 ml 550 ml Output Urine Total 50 ml # Voids 1 # Bowel Movements 1 1 Height (Feet): 5 Height (Inches): 7.00 Weight (Pounds): 133 General Appearance: no apparent distress Objective no change ANGÉLICA MARINO Sep 27, 2017 11:52
--- NOTE | 2017-09-27 16:37 | General Progress Note ---
Assessment/Plan Status: stable, progressing Assessment/Plan encephalopathy agitation dementia with behavioral dist ativan Subjective Date patient seen: Sep 27, 2017 Neurologic/Psychiatric: Reports: anxiety, depressed, emotional problems Allergies: Coded Allergies: ACETAMINOPHEN (Verified Adverse Reaction, Severe, Extreme confusion, delerium, 01/19/16) HYDROCODONE (Verified Adverse Reaction, Severe, Extreme confusion, delerium, 01/19/16) Objective Last 24 Hour Vital Signs Date Time Temp Pulse Resp B/P (MAP) Pulse Ox O2 Delivery O2 Flow Rate FiO2 09/27/17 15:39 167/95 09/27/17 15:39 167/95 09/27/17 11:39 98.2 84 20 167/95 95 98.2 09/27/17 09:00 149/80 09/27/17 09:00 73 149/80 09/27/17 08:26 99.5 73 20 149/80 95 99.5 09/27/17 07:56 95 20 Room Air 21 09/27/17 05:20 160/86 09/27/17 04:00 98.1 76 20 160/86 95 98.1 09/27/17 00:00 98.2 76 21 157/85 94 98.2 09/26/17 21:32 71 18 Room Air 21 09/26/17 21:25 143/71 09/26/17 18:31 149/86 09/26/17 18:31 71 149/86 Intake and Output 09/26/17 09/27/17 19:00 07:00 Intake Total 950 ml 550 ml Output Total 50 ml Balance 950 ml 500 ml Intake Oral 600 ml IV Total 350 ml 550 ml Output Urine Total 50 ml # Voids 1 # Bowel Movements 1 1 Laboratory Tests 09/27/17 12:38: C-Reactive Protein, Quantitative 1.9H 09/27/17 15:20: Urine Eosinophils None seen, Urine Random Sodium 103 Height (Feet): 5 Height (Inches): 7.00 Weight (Pounds): 133 General Appearance: no apparent distress, alert, confused, agitated Virginia Huffman M.D. Sep 27, 2017 16:37
[2017-09-27 17:18] VITALS: BP 117/68
[2017-09-27] MEDS: D5 1/2NS 1,000 ML IV SCH (18:17)
[2017-09-27] MEDS: Carvedilol 25mg Tab ORAL SCH (18:18)
--- NOTE | 2017-09-27 18:36 | Pulmonology Progress Note ---
Assessment/Plan Problems: (1) Altered mental status (2) Encephalopathy (3) CVA (cerebral vascular accident) (4) ICD (implantable cardioverter-defibrillator) in place (5) Dementia (6) Cardiomyopathy (7) Renal insufficiency Assessment/Plan mental status improing bp controlled check electroltyes pt/ot neuro and cardio notes appreciated pt/ot dc planning soon. pt recommending SNIF placement Subjective ROS Limited/Unobtainable: No Allergies: Coded Allergies: ACETAMINOPHEN (Verified Adverse Reaction, Severe, Extreme confusion, delerium, 01/19/16) HYDROCODONE (Verified Adverse Reaction, Severe, Extreme confusion, delerium, 01/19/16) Objective Last 24 Hour Vital Signs Date Time Temp Pulse Resp B/P (MAP) Pulse Ox O2 Delivery O2 Flow Rate FiO2 09/27/17 18:18 79 117/68 09/27/17 17:18 98.6 79 19 117/68 92 Room Air 98.6 09/27/17 15:39 167/95 09/27/17 15:39 167/95 09/27/17 11:39 98.2 84 20 167/95 95 98.2 09/27/17 09:00 149/80 09/27/17 09:00 73 149/80 09/27/17 08:26 99.5 73 20 149/80 95 99.5 09/27/17 07:56 95 20 Room Air 21 09/27/17 05:20 160/86 09/27/17 04:00 98.1 76 20 160/86 95 98.1 09/27/17 00:00 98.2 76 21 157/85 94 98.2 09/26/17 21:32 71 18 Room Air 21 09/26/17 21:25 143/71 Intake and Output 09/26/17 09/27/17 19:00 07:00 Intake Total 950 ml 550 ml Output Total 50 ml Balance 950 ml 500 ml Intake Oral 600 ml IV Total 350 ml 550 ml Output Urine Total 50 ml # Voids 1 # Bowel Movements 1 1 Objective General Appearance: WD/WN Lines, tubes and drains: peripheral HEENT: normocephalic, atraumatic Neck: non-tender, normal alignment Respiratory/Chest: chest wall non-tender, lungs clear Cardiovascular/Chest: normal peripheral pulses, normal rate Abdomen: normal bowel sounds, non tender Extremities: normal range of motion, non-tender Skin Exam: normal pigmentation Microbiology Date/Time Source Procedure Growth Status 09/25/17 02:15 Blood Blood Culture - Preliminary NO GROWTH AFTER 48 HOURS Resulted 09/25/17 02:00 Blood Blood Culture - Preliminary NO GROWTH AFTER 48 HOURS Resulted Laboratory Tests 09/27/17 12:38: C-Reactive Protein, Quantitative 1.9H 09/27/17 15:20: Urine Eosinophils None seen, Urine Random Sodium 103 Current Medications Medications (Trade) Dose Ordered Sig/Ricki Route PRN Reason Start Time Stop Time Status Last Admin Dose Admin Albuterol/ Ipratropium (Albuterol/ Ipratropium) 3 ml Q4H PRN HHN Shortness of Breath 09/25/17 05:30 09/30/17 05:29 Aspirin (Ecotrin) 81 mg DAILY ORAL 09/25/17 18:00 10/25/17 17:59 09/26/17 09:37 Carvedilol (Coreg) 25 mg BID ORAL 09/27/17 18:00 10/27/17 17:59 09/27/17 18:18 Clonidine HCl (Catapres Tab) 0.1 mg Q4H PRN ORAL SBP 160 and up 09/25/17 17:00 10/25/17 16:59 Clopidogrel Bisulfate (Plavix) 75 mg DAILY ORAL 09/25/17 18:00 10/25/17 17:59 09/26/17 09:36 Dextrose (Dextrose 50%) STAT PRN IV Hypoglycemia 09/25/17 05:30 10/25/17 05:29 Dextrose/Sodium Chloride 1,000 ml @ 50 mls/hr Q20H IV 09/25/17 05:27 10/25/17 05:26 09/27/17 18:17 Heparin Sodium (Porcine) (Heparin 5000 units/ml) 5,000 units EVERY 12 HOURS SUBQ 09/25/17 09:00 10/25/17 08:59 09/26/17 09:43 Hydralazine HCl (Apresoline) 50 mg Q8HR ORAL 09/25/17 18:00 10/25/17 17:59 09/27/17 15:39 Isosorbide Dinitrate (Isordil) 20 mg TID ORAL 09/27/17 13:00 10/27/17 12:59 09/27/17 15:39 Lorazepam (Ativan 2mg/ml 1ml) 0.5 mg Q4H PRN IV For Anxiety 09/25/17 05:30 10/02/17 05:29 Morphine Sulfate (Morphine Sulfate) 1 mg Q4H PRN IVP For Pain 7-10 09/25/17 05:30 10/02/17 05:29 Nitroglycerin (Ntg) 0.4 mg Q5M X 3 DOSES PRN SL Prn Chest Pain 09/25/17 05:30 10/25/17 05:29 Ondansetron HCl (Zofran) 4 mg Q6H PRN IVP Nausea & Vomiting 09/25/17 05:30 10/25/17 05:29 Polyethylene Glycol (Miralax) 17 gm HSPRN PRN ORAL Constipation 09/25/17 05:30 10/25/17 05:29 Tamsulosin HCl (Flomax) 0.4 mg BEDTIME ORAL 09/25/17 21:00 10/25/17 20:59 09/26/17 21:24 Temazepam (Restoril) 15 mg HSPRN PRN ORAL Insomnia 09/25/17 05:30 10/02/17 05:29 JENNIE MAYA Sep 27, 2017 18:36
[2017-09-27 20:13] VITALS: BP 135/63
[2017-09-27] MEDS ORDERED: Tubing IV Secondary IV ONE (20:20)
[2017-09-27] MEDS ORDERED: D5 1/2NS 1000ml IV ONE (20:20)
[2017-09-27] MEDS: Tamsulosin 0.4mg cap ORAL SCH (21:07)
[2017-09-28 00:55] VITALS: BP 146/78
[2017-09-28 04:00] VITALS: BP 129/74
[2017-09-28] MEDS: HydrALAZINE 50mg tab ORAL SCH ×2 (06:28→13:08)
[2017-09-28 07:18] LABS: BASOPHILS % (AUTO) 0.5 % (0.0-2.0); EOSINOPHILS % (AUTO) 2.3 % (0.0-3.0); HEMATOCRIT 33.3 % (42.0-52.0); HEMOGLOBIN 11.2 G/DL (14.2-18.0); LYMPHOCYTES % (AUTO) 21.7 % (20.0-45.0); MEAN CORPUSCULAR VOLUME 92 FL (80-99); MONOCYTES % (AUTO) 9.6 % (1.0-10.0); NEUTROPHILS % (AUTO) 66.1 % (45.0-75.0); PLATELET COUNT 130 K/UL (150-450); RED BLOOD COUNT 3.63 M/UL (4.70-6.10); RED CELL DISTRIBUTION WIDTH 13.4 % (11.6-14.8); WHITE BLOOD COUNT 6.5 K/UL (4.8-10.8)
[2017-09-28 07:20] LABS: ALANINE AMINOTRANSFERASE 14 U/L (12-78); ALBUMIN 2.9 G/DL (3.4-5.0); ALBUMIN/GLOBULIN RATIO 0.9 (1.0-2.7); ALKALINE PHOSPHATASE 85 U/L (46-116); ANION GAP 9 mmol/L (5-15); ASPARTATE AMINO TRANSFERASE 12 U/L (15-37); BILIRUBIN,TOTAL 0.6 MG/DL (0.2-1.0); BLOOD UREA NITROGEN 26 mg/dL (7-18); CALCIUM 8.3 MG/DL (8.5-10.1); CARBON DIOXIDE 24 MMOL/L (21-32); CHLORIDE 106 MMOL/L (98-107); CREATINE KINASE 42 U/L (26-308); CREATININE 2.1 MG/DL (0.55-1.30); GAMMA GLUTAMYL TRANSPEPTIDASE 12 U/L (5-85); PHOSPHORUS 3.5 MG/DL (2.5-4.9); POTASSIUM 3.8 MMOL/L (3.5-5.1); SODIUM 139 MMOL/L (136-145)
[2017-09-28 08:11] VITALS: BP 148/81
[2017-09-28] MEDS: Heparin 5000 units/ml inj SUBQ SCH (09:00)
--- NOTE | 2017-09-28 10:29 | Diagnostic Imaging Report ---
APPROVED REPORT CPT Code: 96038 Vascular Symptoms Syncope CVA/TIA: Surgery/Intervention Carotid Stent: left Doppler Spectral Velocity Analysis RightLeft RIGHT SIDE: CCA - Imaging reveals no significant plaque in the common carotid artery. ICA The Doppler signal indicates the degree of stenosis is moderate (60%) in the internal carotid artery, and moderate (60-70%) in the external carotid artery. VERTEBRAL - The vertebral artery is patent, without evidence of stenosis or steal. arteries. The Doppler spectral flow analysis indicates the degree of stenosis is minimal (20%) in the common carotid artery, minimal (20%) in the stented internal carotid artery, and moderate (50%) in the external carotid artery. VERTEBRAL- The vertebral artery is patent, without evidence of stenosis or steals. VERTEBRAL - The vertebral artery is patent, without evidence of stenosis or steal.
--- NOTE | 2017-09-28 10:29 | Diagnostic Imaging Report ---
APPROVED REPORT CPT Code: 44864 Present Symptoms Comments: R/O DVT BILATERAL: Imaging reveals a patent deep venous system bilaterally. There is no evidence of thrombus within the femoral, popliteal or tibial segments. The greater saphenous veins are also within normal limits. Doppler indicates normal spontaneous flow within these segments.
[2017-09-28] MEDS: Aspirin EC 81mg tab ORAL SCH (10:37)
[2017-09-28] MEDS: Carvedilol 25mg Tab ORAL SCH ×2 (10:37→17:13)
[2017-09-28 11:36] VITALS: BP 111/60
[2017-09-28] MEDS: D5 1/2NS 1,000 ML IV SCH (13:07)
--- NOTE | 2017-09-28 15:15 | Pulmonology Progress Note ---
Assessment/Plan Problems: (1) Altered mental status (2) Encephalopathy (3) CVA (cerebral vascular accident) (4) ICD (implantable cardioverter-defibrillator) in place (5) Dementia (6) Cardiomyopathy (7) Renal insufficiency Assessment/Plan mental status improing bp controlled check electroltyes pt/ot neuro and cardio notes appreciated pt/ot planning soon. pt recommending SNIF placement Subjective ROS Limited/Unobtainable: No Constitutional: Reports: no symptoms HEENT: Repors: no symptoms Allergies: Coded Allergies: ACETAMINOPHEN (Verified Adverse Reaction, Severe, Extreme confusion, delerium, 01/19/16) HYDROCODONE (Verified Adverse Reaction, Severe, Extreme confusion, delerium, 01/19/16) Objective Last 24 Hour Vital Signs Date Time Temp Pulse Resp B/P (MAP) Pulse Ox O2 Delivery O2 Flow Rate FiO2 09/28/17 13:08 111/60 09/28/17 13:08 111/60 09/28/17 11:36 97.8 65 20 111/60 95 97.8 09/28/17 10:38 148/81 09/28/17 10:37 66 148/81 09/28/17 08:11 98.0 66 20 148/81 94 98.0 09/28/17 07:06 70 18 Room Air 21 09/28/17 06:28 129/74 09/28/17 04:00 98.2 71 18 129/74 95 Room Air 98.2 09/28/17 00:55 99.0 75 20 146/78 94 Room Air 99.0 09/27/17 21:07 135/63 09/27/17 20:13 97.7 70 20 135/63 98 Room Air 97.7 09/27/17 19:47 76 19 Room Air 21 09/27/17 18:18 79 117/68 09/27/17 17:18 98.6 79 19 117/68 92 Room Air 98.6 09/27/17 15:39 167/95 09/27/17 15:39 167/95 Intake and Output 09/27/17 09/28/17 19:00 07:00 Intake Total 170 ml 100 ml Balance 170 ml 100 ml Intake Oral 120 ml IV Total 50 ml 100 ml # Voids 2 # Bowel Movements 1 Objective General Appearance: WD/WN Lines, tubes and drains: peripheral HEENT: normocephalic, atraumatic Neck: non-tender, normal alignment Respiratory/Chest: chest wall non-tender, lungs clear Cardiovascular/Chest: normal peripheral pulses, normal rate Abdomen: normal bowel sounds, non tender Extremities: normal range of motion, non-tender Skin Exam: normal pigmentation Laboratory Tests 09/27/17 15:20: Urine Eosinophils None seen, Urine Random Sodium 103 09/28/17 05:10: White Blood Count 6.5, Red Blood Count 3.63L, Hemoglobin 11.2L, Hematocrit 33.3L , Mean Corpuscular Volume 92, Mean Corpuscular Hemoglobin 30.9, Mean Corpuscular Hemoglobin Concent 33.7, Red Cell Distribution Width 13.4, Platelet Count 130L, Mean Platelet Volume 8.0, Neutrophils (%) (Auto) 66.1, Lymphocytes ( %) (Auto) 21.7, Monocytes (%) (Auto) 9.6, Eosinophils (%) (Auto) 2.3, Basophils (%) (Auto) 0.5, Sodium Level 139, Potassium Level 3.8, Chloride Level 106, Carbon Dioxide Level 24, Anion Gap 9, Blood Urea Nitrogen 26H, Creatinine 2.1H, Estimat Glomerular Filtration Rate , Glucose Level 93, Uric Acid 7.1, Calcium Level 8.3L, Phosphorus Level 3.5, Magnesium Level 1.8, Total Bilirubin 0.6, Gamma Glutamyl Transpeptidase 12, Aspartate Amino Transf (AST/SGOT) 12L, Alanine Aminotransferase (ALT/SGPT) 14, Alkaline Phosphatase 85, Total Creatine Kinase 42, Troponin I 0.035, Pro-B-Type Natriuretic Peptide 1691H, Total Protein 6.0L, Albumin 2.9L, Globulin 3.1, Albumin/Globulin Ratio 0.9L 09/28/17 05:25: Urine Eosinophils None seen Current Medications Medications (Trade) Dose Ordered Sig/Ricki Route PRN Reason Start Time Stop Time Status Last Admin Dose Admin Albuterol/ Ipratropium (Albuterol/ Ipratropium) 3 ml Q4H PRN HHN Shortness of Breath 09/25/17 05:30 09/30/17 05:29 Aspirin (Ecotrin) 81 mg DAILY ORAL 09/25/17 18:00 10/25/17 17:59 09/28/17 10:37 Carvedilol (Coreg) 25 mg BID ORAL 09/27/17 18:00 10/27/17 17:59 09/28/17 10:37 Clonidine HCl (Catapres Tab) 0.1 mg Q4H PRN ORAL SBP 160 and up 09/25/17 17:00 10/25/17 16:59 Clopidogrel Bisulfate (Plavix) 75 mg DAILY ORAL 09/25/17 18:00 10/25/17 17:59 09/28/17 10:37 Dextrose (Dextrose 50%) STAT PRN IV Hypoglycemia 09/25/17 05:30 10/25/17 05:29 Dextrose/Sodium Chloride 1,000 ml @ 50 mls/hr Q20H IV 09/25/17 05:27 10/25/17 05:26 09/28/17 13:07 Heparin Sodium (Porcine) (Heparin 5000 units/ml) 5,000 units EVERY 12 HOURS SUBQ 09/25/17 09:00 10/25/17 08:59 09/26/17 09:43 Hydralazine HCl (Apresoline) 50 mg Q8HR ORAL 09/25/17 18:00 10/25/17 17:59 09/28/17 13:08 Isosorbide Dinitrate (Isordil) 20 mg TID ORAL 09/27/17 13:00 10/27/17 12:59 09/28/17 13:08 Lorazepam (Ativan 2mg/ml 1ml) 0.5 mg Q4H PRN IV For Anxiety 09/25/17 05:30 10/02/17 05:29 Morphine Sulfate (Morphine Sulfate) 1 mg Q4H PRN IVP For Pain 7-10 09/25/17 05:30 10/02/17 05:29 Nitroglycerin (Ntg) 0.4 mg Q5M X 3 DOSES PRN SL Prn Chest Pain 09/25/17 05:30 10/25/17 05:29 Ondansetron HCl (Zofran) 4 mg Q6H PRN IVP Nausea & Vomiting 09/25/17 05:30 10/25/17 05:29 Polyethylene Glycol (Miralax) 17 gm HSPRN PRN ORAL Constipation 09/25/17 05:30 10/25/17 05:29 Tamsulosin HCl (Flomax) 0.4 mg BEDTIME ORAL 09/25/17 21:00 10/25/17 20:59 09/27/17 21:07 Temazepam (Restoril) 15 mg HSPRN PRN ORAL Insomnia 09/25/17 05:30 10/02/17 05:29 JENNIE MAYA Sep 28, 2017 15:15
--- NOTE | 2017-09-28 15:18 | Nephrology Progress Note ---
Assessment/Plan Problem List: (1) Cardiomyopathy (2) Encephalopathy (3) Renal insufficiency (4) ICD (implantable cardioverter-defibrillator) in place (5) Cardiomyopathy Assessment Renal failure- Chronic vs acute Cr stable Anemia Encephalopathy / CVA Pacer Dementia Cardiomyopathy Ej Fx 40% Plan Slow Hydration Urine studies Kidney EDWIN unremarkable avoid nephrotoxics per consultants Subjective ROS Limited/Unobtainable: No Objective Objective Last 24 Hour Vital Signs Date Time Temp Pulse Resp B/P (MAP) Pulse Ox O2 Delivery O2 Flow Rate FiO2 09/28/17 13:08 111/60 09/28/17 13:08 111/60 09/28/17 11:36 97.8 65 20 111/60 95 97.8 09/28/17 10:38 148/81 09/28/17 10:37 66 148/81 09/28/17 08:11 98.0 66 20 148/81 94 98.0 09/28/17 07:06 70 18 Room Air 21 09/28/17 06:28 129/74 09/28/17 04:00 98.2 71 18 129/74 95 Room Air 98.2 09/28/17 00:55 99.0 75 20 146/78 94 Room Air 99.0 09/27/17 21:07 135/63 09/27/17 20:13 97.7 70 20 135/63 98 Room Air 97.7 09/27/17 19:47 76 19 Room Air 21 09/27/17 18:18 79 117/68 09/27/17 17:18 98.6 79 19 117/68 92 Room Air 98.6 09/27/17 15:39 167/95 09/27/17 15:39 167/95 Intake and Output 09/27/17 09/28/17 19:00 07:00 Intake Total 170 ml 100 ml Balance 170 ml 100 ml Intake Oral 120 ml IV Total 50 ml 100 ml # Voids 2 # Bowel Movements 1 Laboratory Tests 09/27/17 15:20: Urine Eosinophils None seen, Urine Random Sodium 103 09/28/17 05:10: White Blood Count 6.5, Red Blood Count 3.63L, Hemoglobin 11.2L, Hematocrit 33.3L , Mean Corpuscular Volume 92, Mean Corpuscular Hemoglobin 30.9, Mean Corpuscular Hemoglobin Concent 33.7, Red Cell Distribution Width 13.4, Platelet Count 130L, Mean Platelet Volume 8.0, Neutrophils (%) (Auto) 66.1, Lymphocytes ( %) (Auto) 21.7, Monocytes (%) (Auto) 9.6, Eosinophils (%) (Auto) 2.3, Basophils (%) (Auto) 0.5, Sodium Level 139, Potassium Level 3.8, Chloride Level 106, Carbon Dioxide Level 24, Anion Gap 9, Blood Urea Nitrogen 26H, Creatinine 2.1H, Estimat Glomerular Filtration Rate , Glucose Level 93, Uric Acid 7.1, Calcium Level 8.3L, Phosphorus Level 3.5, Magnesium Level 1.8, Total Bilirubin 0.6, Gamma Glutamyl Transpeptidase 12, Aspartate Amino Transf (AST/SGOT) 12L, Alanine Aminotransferase (ALT/SGPT) 14, Alkaline Phosphatase 85, Total Creatine Kinase 42, Troponin I 0.035, Pro-B-Type Natriuretic Peptide 1691H, Total Protein 6.0L, Albumin 2.9L, Globulin 3.1, Albumin/Globulin Ratio 0.9L 09/28/17 05:25: Urine Eosinophils None seen Height (Feet): 5 Height (Inches): 7.00 Weight (Pounds): 133 Objective no change ANGÉLICA MARINO Sep 28, 2017 15:18
[2017-09-28 16:00] VITALS: BP 154/79
[2017-09-28 17:13] VITALS: BP 154/79
--- NOTE | 2017-09-28 21:45 | General Progress Note ---
Assessment/Plan Status: stable Assessment/Plan encephalopathy agitation dementia with behavioral dist ativan Subjective Date patient seen: Sep 28, 2017 Neurologic/Psychiatric: Reports: anxiety, depressed, emotional problems Allergies: Coded Allergies: ACETAMINOPHEN (Verified Adverse Reaction, Severe, Extreme confusion, delerium, 01/19/16) HYDROCODONE (Verified Adverse Reaction, Severe, Extreme confusion, delerium, 01/19/16) Objective Last 24 Hour Vital Signs Date Time Temp Pulse Resp B/P (MAP) Pulse Ox O2 Delivery O2 Flow Rate FiO2 09/28/17 17:13 154/79 09/28/17 17:13 68 154/79 09/28/17 16:00 98.4 68 20 154/79 96 98.4 09/28/17 13:08 111/60 09/28/17 13:08 111/60 09/28/17 11:36 97.8 65 20 111/60 95 97.8 09/28/17 10:38 148/81 09/28/17 10:37 66 148/81 09/28/17 08:11 98.0 66 20 148/81 94 98.0 09/28/17 07:06 70 18 Room Air 21 09/28/17 06:28 129/74 09/28/17 04:00 98.2 71 18 129/74 95 Room Air 98.2 09/28/17 00:55 99.0 75 20 146/78 94 Room Air 99.0 Intake and Output 09/27/17 09/28/17 19:00 07:00 Intake Total 170 ml 100 ml Balance 170 ml 100 ml Intake Oral 120 ml IV Total 50 ml 100 ml # Voids 2 # Bowel Movements 1 Laboratory Tests 09/28/17 05:10: White Blood Count 6.5, Red Blood Count 3.63L, Hemoglobin 11.2L, Hematocrit 33.3L , Mean Corpuscular Volume 92, Mean Corpuscular Hemoglobin 30.9, Mean Corpuscular Hemoglobin Concent 33.7, Red Cell Distribution Width 13.4, Platelet Count 130L, Mean Platelet Volume 8.0, Neutrophils (%) (Auto) 66.1, Lymphocytes ( %) (Auto) 21.7, Monocytes (%) (Auto) 9.6, Eosinophils (%) (Auto) 2.3, Basophils (%) (Auto) 0.5, Sodium Level 139, Potassium Level 3.8, Chloride Level 106, Carbon Dioxide Level 24, Anion Gap 9, Blood Urea Nitrogen 26H, Creatinine 2.1H, Estimat Glomerular Filtration Rate , Glucose Level 93, Uric Acid 7.1, Calcium Level 8.3L, Phosphorus Level 3.5, Magnesium Level 1.8, Total Bilirubin 0.6, Gamma Glutamyl Transpeptidase 12, Aspartate Amino Transf (AST/SGOT) 12L, Alanine Aminotransferase (ALT/SGPT) 14, Alkaline Phosphatase 85, Total Creatine Kinase 42, Troponin I 0.035, Pro-B-Type Natriuretic Peptide 1691H, Total Protein 6.0L, Albumin 2.9L, Globulin 3.1, Albumin/Globulin Ratio 0.9L 09/28/17 05:25: Urine Eosinophils None seen Height (Feet): 5 Height (Inches): 7.00 Weight (Pounds): 133 General Appearance: no apparent distress, alert, confused Virginia Huffman M.D. Sep 28, 2017 21:45
--- NOTE | 2017-10-01 11:11 | Discharge Summary ---
Discharge Summary Hospital Course Date of Admission Sep 25, 2017 at 02:18 Date of Discharge Sep 28, 2017 at 17:31 Admitting Diagnosis ALTERED MENTAL STATUS HPI Ray Rock is a 76 year old male who was admitted on Sep 25, 2017 at 02:18 for Altered Mental Status Hospital Course dc summary #[id number] Discharge Medications Continued Medications: Aspirin* (Aspirin*) 81 Mg Tab.chew 81 MG ORAL DAILY, TAB Atorvastatin Calcium* (Atorvastatin Calcium*) 40 Mg Tablet 40 MG ORAL BEDTIME, TAB Carvedilol* (Carvedilol*) 12.5 Mg Tablet 12.5 MG ORAL DAILY, TAB Cholecalciferol (Vitamin D3)* (Vitamin D*) 1,000 Unit Tablet 2000 UNIT ORAL DAILY, #30 TAB Furosemide* (Lasix*) 20 Mg Tablet 20 MG ORAL DAILY, TAB Hydralazine Hcl* (Hydralazine Hcl*) 50 Mg Tablet 50 MG ORAL BID, TAB Memantine Hcl* (Namenda*) 10 Mg Tablet 10 MG ORAL TWICE A DAY, TAB Prasugrel Hcl (Effient) 10 Mg Tablet 10 MG PO BID, TAB Tamsulosin Hcl (Tamsulosin Hcl*) 0.4 Mg Cap.er.24h 0.4 MG ORAL BEDTIME, CAP Discharge Condition Upon Discharge: stable Discharge Disposition Patient was discharged to SNF/Subacute Facility(03) Discharge Diagnoses: Discharge Instructions Discharge Instructions Special Instructions I have been assigned to complete a D/C Summary on this account. I was not involved in the patient management Yana Waller NP ([facility]) Oct 01, 2017 11:11
--- NOTE | 2017-10-02 01:00 | Discharge Summary 2 SIG ---
DATE OF ADMISSION: 09/25/2017 DATE OF DISCHARGE: 09/28/2017 REASON FOR ADMISSION: 76-year-old male with history of CVA, dementia, hypertension, chronic obstructive pulmonary disease, hypercholesteremia, and pacemaker, presented to emergency department with altered mental status. The patient was more confused than usual and symptoms were continued to progress. He had previous CVA about two years ago due to the open-heart surgery, and he suffered form a significant vision loss with the CVA. Upon evaluation in the emergency department, found elevated blood pressure- 186/87. No leukocytosis. Stable hemoglobin and hematocrit. BUN -40 and creatinine- 2.3. Lactic acid- 0.7. Electrolytes otherwise stable. Troponin-0.043. Urinalysis negative for evidence of urinary tract infection. EKG revealed normal sinus rhythm with evidence of left ventricular hypertrophy and prolonged QRS interval. Chest x-ray revealed possible right-sided infiltrate with cardiomegaly, increased markings in the right lower lobe,and appearance of possible mild congestion. The patient was afebrile. CT of the head revealed no evidence of acute intracranial bleeding. It showed abnormal bioccipital low attenuation to consider subacute ischemia versus hypertensive encephalopathy. Moderate atrophy of the brain was noted. No evidence of acute intracranial hemorrhage or mass effect. ADMITTING DIAGNOSES: 1. Encephalopathy. 2. Renal insufficiency. 3. Cerebrovascular accident history. 4. Pacemaker. 5. Dementia. 6. Hypertension. HOSPITAL COURSE: The patient was admitted. Nephrology, Cardiology, Neurology, and psychiatric consults were requested. According to neurologist, who himself seen and evaluated CT of the head, the patient had radiological evidence of old strokes in bi-occipital regions resembling posterior reversible encephalopathy syndrome. According to neurologist, the patient had this chronic condition developed two years ago, but no clinical evidence at present was noted. The patient with transient confusional state, probably result of underlying metabolic derangement. No evidence of seizure activity, he doubted TIA. The patient did have a post occipital infarct about two years ago during the open heart surgery, which appeared to be stable. The patient with encephalopathy, possible hypertensive encephalopathy due to elevated blood pressure on admission. Neurologist recommended continue to maintain on antiplatelets and statin and improve blood pressure control. Lipid panel was within normal limits. Tassel Making Machine Operator closely followed the patient. Echocardiogram revealed ejection fraction of 40%, [id number] mitral regurgitation, and right ventricular systolic pressure of 18. The patient had carotid duplex, which revealed right internal carotid artery 60% stenosis and 60% to 70% external carotid artery stenosis on the right side. Left side with mild to moderate stenosis. Per repairer helper, medical management of ischemic cardiomyopathy provided with beta-melina, Isordil, and hydralazine. No YOSHI or ARB due to the renal failure. Renal insufficiency, likely chronic compared with the records at [facility] in 2018, creatinine was 1.8. Gentle IV fluids, which were initially started by facilities locator for renal insufficiency, were discontinued. Renal ultrasound revealed normal echogenicity. No hydronephrosis.Antiplatelet therapy was continued. Blood pressure was controlled with the beta-melina, Isordil, hydralazine, and low dose of Lasix. Volumes and cardiorenal parameters were closely monitored. The patient was on dual antiplatelet therapy and statin, which was continued. Blood pressure stabilized. Mental status improved. DVT prophylaxis provided. Hemoglobin and hematocrit remained on the baseline. The patient was closely monitored. Psychiatrist seen and evaluated the patient and diagnosed the patient with dementia with behavioral changes and encephalopathy. Psychiatrist optimized psychiatric medication regimen. The patient clinically improved. Blood pressure stabilized. Mental status back to baseline. The patient was stabilized and was stable for [facility] back to [facility] facility. FINAL DIAGNOSES: 1. Altered mental status secondary to metabolic encephalopathy. 2. Possible hypertensive encephalopathy. 3. Chronic renal insufficiency. 4. Cerebrovascular accident history (occipital infarct two years ago during coronary artery bypass graft), stable. 5. Ischemic cardiomyopathy. 6. Mild vascular dementia. 7. Right carotid stenosis. 8. Hypertension. 9. Coronary artery disease, status post coronary artery bypass graft with percutaneous coronary intervention of right coronary artery. 10. [id number] mitral regurgitation. 11. Anemia. 12. Dementia with behavioral changes. DISCHARGE MEDICATIONS: See medication reconciliation list. DISCHARGE INSTRUCTIONS: The patient was discharged to [facility] facility. FOLLOWUP: Follow up with medical doctor at the facility. Khadra Mulligan M.D. I have been assigned to dictate discharge summary on this account and I was not involved in the patient's management. Yana Waller N.P. (Vanchtein) DR: ELEANOR JOB#: [id number] CC: [id number]
--- NOTE | 2017-10-04 11:36 | Diagnostic Imaging Report ---
Indications: Dysphagia Technique: Patient ingested multiple substances under the supervision of speech pathology. Video fluoroscopic recording performed. Total fluoroscopy time 228 seconds. Total dose area product [id number] mGycm2 Comparison: none Findings: There is delay in initiation of deglutition. Early and delayed pooling is noted in the vallecula and piriform sinuses. No aspiration or penetration. Impression: Mild oromotor dysfunction, as described. Negative for aspiration or penetration Please refer to speech pathology report for more detailed analysis
== END 2017-09-28 17:31 | DRG 71 ==
LOC: EDBD 01:44 → EMR 01:58 → 4W 02:18 → EDBEDREQ 02:46
DX: G93.41 Metabolic encephalopathy (principal); N18.4 Chronic kidney disease, stage 4 (severe); I42.9 Cardiomyopathy, unspecified; F01.51 Vascular dementia, unspecified severity, with behavioral disturbance; N17.9 Acute kidney failure, unspecified; I13.0 Hypertensive heart and chronic kidney disease with heart failure and stage 1 through stage 4 chronic kidney disease, or unspecified chronic kidney disease; I50.42 Chronic combined systolic (congestive) and diastolic (congestive) heart failure; J44.9 Chronic obstructive pulmonary disease, unspecified; I69.398 Other sequelae of cerebral infarction; Z86.73 Personal history of transient ischemic attack (TIA), and cerebral infarction without residual deficits; E78.00 Pure hypercholesterolemia, unspecified; Z95.0 Presence of cardiac pacemaker; H54.7 Unspecified visual loss; I25.10 Atherosclerotic heart disease of native coronary artery without angina pectoris; Z95.1 Presence of aortocoronary bypass graft; Z95.5 Presence of coronary angioplasty implant and graft; I34.0 Nonrheumatic mitral (valve) insufficiency; D64.9 Anemia, unspecified; Z88.6 Allergy status to analgesic agent; Z86.14 Personal history of Methicillin resistant Staphylococcus aureus infection; N40.0 Benign prostatic hyperplasia without lower urinary tract symptoms; R45.1 Restlessness and agitation; Z79.02 Long term (current) use of antithrombotics/antiplatelets; R25.1 Tremor, unspecified; I65.23 Occlusion and stenosis of bilateral carotid arteries
CPT/HCPCS: 36415; 70450; 71045; 74230; 76770; 80053; 80061; 81003; 82140; 82550; 82553; 82607; 82728; 82746; 82977; 83036; 83540; 83550; 83605; 83690; 83735; 83880; 84100; 84300; 84443; 84484; 84550; 85025; 85610; 85730; 86140; 87040; 89050; 93005; 93306; 93880; 93970; 94664; 99285